=== PATIENT | female | born 1980 | race African-American/Black ===

== ENCOUNTER 2018-10-12 15:07 | Inpatient (IN) | payer OTHER ==
[2018-10-12 17:08] VITALS: BMI 32.2
--- NOTE | 2018-10-12 19:51 | HP ---
COWS - Scale Resting Pulse: 1= [place] 81-100 Sweatin= No chills or Flushing Restless Observation: 1= Difficult to Sit Still Pupil Size: 2= Moderately Dilated (Pupils = 5 mm) Bone or Joint Aches: 1= Mild Discomfort (Low back pain) Runny Nose/ Eye Tearin= Runny Nose/Eyes GI Upset > 30mins: 2= Nausea/Diarrhea (No diarrhea) Tremor Observation: 2= Slight Tremor Visible Yawning Observation: 0= None Anxiety or Irritability: 2=Irritable/Anxious Goose Flesh Skin: 0=Smooth Skin COWS Score: 13 CIWA Score Nausea/Vomitin-Mild Nausea/No Vomiting Muscle Tremors: 3 Anxiety: 4-Mod. Anxious/Guarded Agitation: 2 Paroxysmal Sweats: 3 (Facial moisture w/o beads) Orientation: 0-Oriented Tacttile Disturbances: 0-None Auditory Disturbances: 0-None Visual Disturbances: 0-None Headache: 0-None Present CIWA-Ar Total Score: 13 - Admission Criteria OAS Guidelines: Admission for Medically Managed Detox: Requires at least one of the followin. CIWA greater than 12 2. Seizures within the past 24 hours 3. Delirium tremens within the past 24 hours 4. Hallucinations within the past 24 hours 5. Acute intervention needed for co occurring medical disorder 6. Acute intervention needed for co occurring psychiatric disorder 7. Severe withdrawal that cannot be handled at a lower level of care (continued vomiting, continued diarrhea, abnormal vital signs) requiring intravenous medication and/or fluids 8. Patient presents the following: CIWA greater than 12 Admission Criteria Met: Admission criteria met Admission ROS [facility] Chief Complaint: Here for heroin withdrawal. Allergies/Adverse Reactions: Allergies Allergy/AdvReac Type Severity Reaction Status Date / Time No Known Drug Allergies Allergy Unknown Verified 12/08/15 14:55 lactose AdvReac LACTOSE Verified 12/08/15 14:55 INTOLERANCE History of Present Illness: I need detox from heroin. Heroin use began at age 22. heroin use IV. Denies sharing needles and works. Cocaine use began at age 22. Alcohol use began at age 22. Nicotine use began at age 15. Denies hx seizures, blackouts, overdoses. Longest sobriety 2 years - w/ meetings. (2012) Patient Name: Anisa Arrieta Date: 1980 Address: [address] [place] [address] [place] [address] Sex: Female Rx Written Rx Dispensed Drug Quantity Days Supply Prescriber Name 09/26/2018 09/26/2018 methadone hcl 10 mg tablet 11 6 RonakShadiMeghana NP 08/15/2018 08/17/2018 suboxone 2 mg-0.5 mg sl film 30 30 Antoni Sanchez MD 07/18/2018 07/18/2018 suboxone 2 mg-0.5 mg sl film 30 30 Antoni Sanchez MD 06/14/2018 06/18/2018 suboxone 2 mg-0.5 mg sl film 30 30 Antoni Sanchez MD 05/17/2018 05/22/2018 suboxone 2 mg-0.5 mg sl film 30 30 Antoni Sanchez MD 04/19/2018 04/19/2018 suboxone 2 mg-0.5 mg sl film 30 30 Antoni Sanchez MD Patient Name: Anisa Arrieta Date: 1980 Address: [address] [place] [address] Sex: Female Rx Written Rx Dispensed Drug Quantity Days Supply Prescriber Name 03/20/2018 03/20/2018 suboxone 2 mg-0.5 mg sl film 30 30 Gaby Berry MD 02/13/2018 02/19/2018 suboxone 2 mg-0.5 mg sl film 15 30 Antoni Sanchez MD Patient Name: Anisa Arrieta Date: 1980 Address: [address] [place] [address] Sex: Female Rx Written Rx Dispensed Drug Quantity Days Supply Prescriber Name 01/18/2018 01/18/2018 suboxone 2 mg-0.5 mg sl film 15 30 Antoni Sanchez MD Patient Name: Anisa Arrieta Date: 1980 Address: [address] [place] [address] Sex: Female Rx Written Rx Dispensed Drug Quantity Days Supply Prescriber Name 11/24/2017 12/04/2017 suboxone 2 mg-0.5 mg sl film 30 30 Yisel Bryant 11/02/2017 11/02/2017 suboxone 2 mg-0.5 mg sl film 30 30 Yisel Bryant Exam Limitations: No Limitations - Ebola screening Have you traveled outside of the country in the last 21 days: No Have you had contact with anyone from an Ebola affected area: No Have you been sick,other than usual withdrawal symptoms: No Do you have a fever: No - Review of Systems Constitutional: No Symptoms Reported, Diaphoresis EENT: reports: Blurred Vision, Dental Problems (Missing teeth. Chews and swallows ok.) Respiratory: reports: No Symptoms reported Cardiac: reports: No Symptoms Reported GI: reports: Constipated (No BM x 6 days.), Nausea : reports: No Symptoms Reported Musculoskeletal: reports: Back Pain (r/t withdrawal), Other (Occ muscle spasms/ evin horses) Integumentary: reports: No Symptoms Reported Neuro: reports: Numbness (Tip of both big toes x years) Endocrine: reports: No Symptoms Reported Hematology: reports: No Symptoms Reported Psychiatric: reports: Judgement Intact, Orientated x3, Agitated, Anxious, Depressed (Denies thoughts of hurting self or others.) Patient History - Patient Medical History Hx Anemia: No Hx Asthma: No Hx Chronic Obstructive Pulmonary Disease (COPD): No Hx Cancer: No Hx Cardiac Disorders: No Hx Congestive Heart Failure: No Hx Hypertension: No Hx Hypercholesterolemia: No Hx Pacemaker: No HX Cerebrovascular Accident: No Hx Seizures: No Hx Dementia: No Hx Diabetes: No Hx Gastrointestinal Disorders: No Hx Liver Disease: Yes Hx Genitourinary Disorders: No Hx Sexually Transmitted Disorders: No Hx Renal Disease (ESRD): No Hx Thyroid Disease: No Hx Human Immunodeficiency Virus (HIV): No (NEGATIVE HX) Hx Hepatitis C: Yes (NO TREATMENT) Hx Depression: Yes (ON MEDS) Hx Suicide Attempt: No Hx Bipolar Disorder: No Hx Schizophrenia: No - Patient Surgical History Past Surgical History: Yes Hx Neurologic Surgery: No Hx Cataract Extraction: No Hx Cardiac Surgery: No Hx Lung Surgery: No Hx Breast Surgery: No Hx Breast Biopsy: No Hx Abdominal Surgery: No Hx Appendectomy: No Hx Cholecystectomy: No Hx Genitourinary Surgery: No Hx Section: No Hx Orthopedic Surgery: No Other Surgical History: I&D OF ABSCESS LT. FOREARM Anesthesia Reaction: No - PPD History Previous Implant?: Yes Documented Results: Negative w/proof Implanted On Prior R Admission?: Yes Date: 08/22/15 Results: 0 MM PPD to be Administered?: Yes - Reproductive History Patient is a Female of Child Bearing Age (11 -55 yrs old): Yes Last Menstrual Period: 09/06/18 Patient : No - Smoking Cessation Smoking history: Current every day smoker Have you smoked in the past 12 months: Yes Aproximately how many cigarettes per day: 10 Cigars Per Day: 0 Hx Chewing Tobacco Use: No Initiated information on smoking cessation: Yes 'Breaking Loose' booklet given: 10/12/18 - Substance & Tx. History Hx Alcohol Use: Yes Hx Substance Use: Yes Substance Use Type: Alcohol, Cocaine, Heroin Hx Substance Use Treatment: Yes (detox, rehab, long-term) - Substances Abused Heroin Route: Injection Frequency: Daily Amount used: 6 to 8 bags Age of first use: 22 Date of Last Use: 10/12/18 Cocaine Route: Injection Frequency: Daily Amount used: 4 bags Age of first use: 22 Date of Last Use: 10/12/18 Alcohol Route: Oral Frequency: Daily Amount used: 3 - 24 oz cans Age of first use: 22 Date of Last Use: 10/12/18 Family Disease History - Family Disease History Family Disease History: Diabetes: Father (etoh drugs), Other: Father, Mother ( etoh drugs) Admission Physical Exam [facility] - Vital Signs Vital Signs: Vital Signs - 24 hr 10/12/18 17:06 Temperature 97.9 F Pulse Rate 85 Respiratory 18 Rate Blood Pressure 132/85 - Physical General Appearance: Yes: Appropriately Dressed, Mild Distress, Tremorous, Irritable, Sweating, Anxious HEENTM: Yes: EOMI, Hearing grossly Normal, Normal Voice, NEERAJ (Pupils = 5 mm), Pharynx Normal, Rhinorrhea Respiratory: Yes: Lungs Clear, Normal Breath Sounds, No Respiratory Distress Neck: Yes: No masses,lesions,Nodules, Supple Breast: Yes: Breast Exam Deferred Cardiology: Yes: Regular Rhythm, Regular Rate, S1, S2 Abdominal: Yes: Non Tender, Soft, Increased Bowel Sounds Genitourinary: Yes: Within Normal Limits Back: Yes: Normal Inspection Musculoskeletal: Yes: full range of Motion, Gait Steady Extremities: Yes: Normal Capillary Refill, Tremors (mod tremors w/ arms extended ) Neurological: Yes: grain scooper II-XII NML intact, Fully Oriented, Alert, Motor Strength 5/5, Normal Mood/Affect Integumentary: Yes: Normal Color, Dry, Warm, Track Callaway ((R) and (L) arms. (L) arm injection site w/ increased warmth and a 3 cm circular induration.) Lymphatic: Yes: Within Normal Limits - Diagnostic (1) Alcohol dependence with uncomplicated withdrawal Current Visit: No Status: Chronic (2) Cocaine dependence Current Visit: No Status: Chronic Qualifiers: Substance use status: uncomplicated Qualified Code(s): F14.20 - Cocaine dependence, uncomplicated (3) Nicotine dependence Current Visit: No Status: Chronic (4) Opioid dependence with withdrawal Current Visit: No Status: Chronic (5) Induration at injection site Current Visit: Yes Status: Acute Comment: (R) antecubital area Cleared for Admission [facility] - Detox or Rehab [facility] Level of Care: Medically Managed Detox Regimen/Protocol: Methadone/Librium [facility] Breath Alcohol Content Breath Alcohol Content: 0 Urine Pregancy Test - Result Urine Test Results: Negative- NO Line Present Urine Drug Screen - Results Drug Screen Negative: No Urine Drug Screen Results: BETTYE-Cocaine, OPI-Opiates, BAR-Barbiturates, MTD- Methadone, OXY-Oxycodone, FEN-Fentanyl
[2018-10-12] MEDS ORDERED: METHADONE HCL 10 MG TABLET (FOR DETOX USE ONLY) PO ONE ×2 (23:00→23:19)
[2018-10-12] MEDS ORDERED: chlordiazePOXIDE HCL 25 MG CAPSULE PO SCH (23:00)
[2018-10-12] MEDS ORDERED: chlordiazePOXIDE 5 MG CAPSULE PO PRN (23:19)
[2018-10-12] MEDS ORDERED: MAG HYDROX/AL HYDROX/SIMETH 30 ML UNIT-DOSE CUP PO PRN (23:19)
[2018-10-12] MEDS ORDERED: MAGNESIUM CITRATE 300 ML BOTTLE PO PRN (23:19)
[2018-10-12] MEDS ORDERED: IBUPROFEN 400 MG TABLET (FP) PO PRN (23:19)
[2018-10-12] MEDS ORDERED: MAGNESIUM HYDROX 2400MG/30ML ORAL SUSPENSION 30 ML CUP PO PRN (23:19)
[2018-10-12] MEDS ORDERED: ACETAMINOPHEN 325 MG TABLET (FP) PO PRN (23:19)
[2018-10-12] MEDS ORDERED: LOPERAMIDE HCL 2 MG CAPSULE PO PRN (23:19)
[2018-10-12] MEDS ORDERED: MENTHOL/PHENOL 1 EACH UD MM PRN (23:19)
[2018-10-12] MEDS ORDERED: NICOTINE POLACRILEX 2 MG GUM BC PRN (23:19)
[2018-10-13] MEDS ORDERED: METHADONE HCL 10 MG TABLET (FOR DETOX USE ONLY) PO ONE ×3 (00:40→23:00)
[2018-10-13] MEDS: MELATONIN 5 MG TABLETS PO PRN ×2 (00:59→23:08)
[2018-10-13] MEDS: BACITRACIN 0.9 GM PACKET TP SCH ×5 (01:00→23:01)
[2018-10-13] MEDS ORDERED: METHADONE HCL 10 MG TABLET (FOR DETOX USE ONLY) PO SCH (10:00)
[2018-10-13] MEDS: PRENATAL VITAMINS W/ FOLIC ACID TABLET (FP) PO SCH (10:52)
[2018-10-13] MEDS: NICOTINE 14 MG/24 HOURS TOPICAL PATCH TD SCH (10:53)
[2018-10-13 11:10] LABS: HEMOGLOBIN 12.2 GM/dL (10.7-15.3); MCH 26.1 pg (25.7-33.7); MCHC 31.2 g/dl (32.0-36.0); MEAN CELL VOLUME 83.5 fl (80-96); PLATELET COUNT 299 K/MM3 (134-434); RBC 4.67 M/mm3 (3.60-5.2); RDW 14.2 % (11.6-15.6); WHITE BLOOD COUNT 5.6 K/mm3 (4.0-10.0)
[2018-10-13 11:27] LABS: ALBUMIN 3.3 g/dl (3.4-5.0); ALK PHOS 64 U/L (45-117); ANION GAP 8 MMOL/L (8-16); BILIRUBIN,TOTAL 0.5 mg/dL (0.2-1); BLOOD UREA NITROGEN 9 mg/dL (7-18); CALCIUM 8.8 mg/dL (8.5-10.1); CHLORIDE 104 mmol/L (98-107); CO2 27 mmol/L (21-32); CREATININE 0.8 mg/dL (0.55-1.3); GLUCOSE,RANDOM 86 mg/dL (74-106); POTASSIUM 3.7 mmol/L (3.5-5.1); SGOT/AST 24 U/L (15-37); SGPT/ALT 29 U/L (13-61); SODIUM 139 mmol/L (136-145); TOT PROT 6.5 g/dl (6.4-8.2)
--- NOTE | 2018-10-13 11:32 | PN ---
[facility] CIWA - CIWA Score Nausea/Vomitin-No Nausea/No Vomiting Muscle Tremors: 4-Moderate,w/Arms Extend Anxiety: 4-Mod. Anxious/Guarded Agitation: 4-Moderately Restless Paroxysmal Sweats: 1-Minimal Palms Moist Orientation: 0-Oriented Tacttile Disturbances: 0-None Auditory Disturbances: 0-None Visual Disturbances: 0-None Headache: 0-None Present CIWA-Ar Total Score: 13 BHS COWS - Scale Resting Pulse: 0= [place] 80 or Below Sweatin= Chills/Flushing Restless Observation: 3= Extraneous Movement Pupil Size: 0= Normal to Room Light Bone or Joint Aches: 4=Acute Joint/Muscle Pain Runny Nose/ Eye Tearin= None GI Upset > 30mins: 0= None Tremor Observation of Outstretched Hands: 2= Slight Tremor Visible Yawning Observation: 1= 1-2x During Session Anxiety or Irritability: 2=Irritable/Anxious Goose Flesh Skin: 0=Smooth Skin COWS Score: 13 S Progress Note (SOAP) Subjective: ANXIETY,SWEATS, NO BM X 6 DAYS,INTERMITTENT SLEEP. Objective: Vital Signs (72 hours) 10/12/18 10/13/18 10/13/18 17:06 00:25 03:30 Temperature 97.9 F 97.1 F L Pulse Rate 85 69 Respiratory 18 18 18 Rate Blood Pressure 132/85 136/89 10/13/18 10/13/18 10/13/18 06:22 06:30 09:57 Temperature 97.3 F L 98.1 F Pulse Rate 56 L 66 Respiratory 18 18 16 Rate Blood Pressure 115/69 122/78 Laboratory Tests 10/13/18 10/13/18 10/13/18 07:50 07:50 07:50 WBC 5.6 RBC 4.67 Hgb 12.2 Hct 39.0 MCV 83.5 MCH 26.1 MCHC 31.2 L RDW 14.2 Plt Count 299 MPV 8.0 Sodium 139 Potassium 3.7 Chloride 104 Carbon Dioxide 27 Anion Gap 8 BUN 9 Creatinine 0.8 Creat Clearance w eGFR > 60 Random Glucose 86 Calcium 8.8 Total Bilirubin 0.5 AST 24 ALT 29 Alkaline Phosphatase 64 Total Protein 6.5 Albumin 3.3 L RPR Titer HIV 1&2 Antibody Screen Negative HIV P24 Antigen Negative 10/13/18 07:50 WBC RBC Hgb Hct MCV MCH MCHC RDW Plt Count MPV Sodium Potassium Chloride Carbon Dioxide Anion Gap BUN Creatinine Creat Clearance w eGFR Random Glucose Calcium Total Bilirubin AST ALT Alkaline Phosphatase Total Protein Albumin RPR Titer Nonreactive HIV 1&2 Antibody Screen HIV P24 Antigen Assessment: WITHDRAWAL SX OIC Plan: CONTINUE DETOX METAMUCIL PO BID DIRECTED
[2018-10-13] MEDS: hydrOXYzine PAMOATE 50 MG CAPSULE (FP) PO PRN (18:09)
[2018-10-13] MEDS: PSYLLIUM 5.85 GM PACKET PO SCH ×2 (23:00)
[2018-10-13] MEDS: THIAMINE HCL 100 MG TABLET (FP) PO SCH (23:00)
[2018-10-13] MEDS ORDERED: chlordiazePOXIDE 5 MG CAPSULE PO SCH (23:00)
[2018-10-14] MEDS ORDERED: METHADONE HCL 5 MG TABLET (FOR DETOX USE ONLY) PO SCH (10:00)
[2018-10-14] MEDS ORDERED: METHADONE HCL 10 MG TABLET (FOR DETOX USE ONLY) PO ONE (10:00)
[2018-10-14] MEDS: hydrOXYzine PAMOATE 50 MG CAPSULE (FP) PO PRN (10:37)
[2018-10-14] MEDS: PRENATAL VITAMINS W/ FOLIC ACID TABLET (FP) PO SCH (10:37)
[2018-10-14] MEDS: BACITRACIN 0.9 GM PACKET TP SCH ×4 (10:37→22:38)
[2018-10-14] MEDS: PSYLLIUM 5.85 GM PACKET PO SCH ×2 (10:38→22:38)
[2018-10-14] MEDS: NICOTINE 14 MG/24 HOURS TOPICAL PATCH TD SCH (10:38)
[2018-10-14] MEDS ORDERED: chlordiazePOXIDE HCL 25 MG CAPSULE PO PRN (17:23)
[2018-10-14] MEDS ORDERED: chlordiazePOXIDE 5 MG CAPSULE PO SCH (17:30)
[2018-10-14] MEDS ORDERED: chlordiazePOXIDE HCL 25 MG CAPSULE PO SCH (17:30)
[2018-10-14] MEDS ORDERED: chlordiazePOXIDE HCL 25 MG CAPSULE PO ONE ×2 (17:30→18:00)
--- NOTE | 2018-10-14 17:42 | PN ---
S CIWA - CIWA Score Nausea/Vomitin Muscle Tremors: 4-Moderate,w/Arms Extend Anxiety: 4-Mod. Anxious/Guarded Agitation: 4-Moderately Restless Paroxysmal Sweats: 3 Orientation: 0-Oriented Tacttile Disturbances: 1-Very Mild Itch/Numbness Auditory Disturbances: 0-None Visual Disturbances: 0-None Headache: 0-None Present CIWA-Ar Total Score: 18 BHS COWS - Scale Resting Pulse: 0= DC 80 or Below Sweatin= Chills/Flushing Restless Observation: 3= Extraneous Movement Pupil Size: 0= Normal to Room Light Bone or Joint Aches: 2= Severe Diffuse Aches Runny Nose/ Eye Tearin= Runny Nose/Eyes GI Upset > 30mins: 3= Vomiting/Diarrhea Tremor Observation of Outstretched Hands: 2= Slight Tremor Visible Yawning Observation: 1= 1-2x During Session Anxiety or Irritability: 2=Irritable/Anxious Goose Flesh Skin: 0=Smooth Skin COWS Score: 16 BHS Progress Note (SOAP) Subjective: Patient refused to speak with newspaper writer. As per staff, patient c/o withdrawal symptoms and was not treated for alcohol withdrawal. Objective: 10/14/18 17:40 Last Vital Signs Temp Pulse Resp BP Pulse Ox 98.6 F 66 20 124/79 10/14/18 14:55 10/14/18 14:55 10/14/18 14:55 10/14/18 14:55 Laboratory Tests 10/13/18 10/13/18 10/13/18 07:50 07:50 07:50 WBC 5.6 RBC 4.67 Hgb 12.2 Hct 39.0 MCV 83.5 MCH 26.1 MCHC 31.2 L RDW 14.2 Plt Count 299 MPV 8.0 Sodium 139 Potassium 3.7 Chloride 104 Carbon Dioxide 27 Anion Gap 8 BUN 9 Creatinine 0.8 Creat Clearance w eGFR > 60 Random Glucose 86 Calcium 8.8 Total Bilirubin 0.5 AST 24 ALT 29 Alkaline Phosphatase 64 Total Protein 6.5 Albumin 3.3 L RPR Titer HIV 1&2 Antibody Screen Negative HIV P24 Antigen Negative 10/13/18 07:50 WBC RBC Hgb Hct MCV MCH MCHC RDW Plt Count MPV Sodium Potassium Chloride Carbon Dioxide Anion Gap BUN Creatinine Creat Clearance w eGFR Random Glucose Calcium Total Bilirubin AST ALT Alkaline Phosphatase Total Protein Albumin RPR Titer Nonreactive HIV 1&2 Antibody Screen HIV P24 Antigen Labs reviewed Assessment: 10/14/18 17:41 Withdrawal symptoms Plan: Continue detox Encouraged PO water intake Patient admitted for alcohol and opioid dependence. Patient only on methadone detox. Ordered to start librium 25mg detox protocol due to alcohol withdrawal. Continue to monitor.
[2018-10-14] MEDS: THIAMINE HCL 100 MG TABLET (FP) PO SCH (22:38)
[2018-10-14] MEDS: chlordiazePOXIDE HCL 25 MG CAPSULE PO SCH (22:38)
[2018-10-14] MEDS: MELATONIN 5 MG TABLETS PO PRN (22:39)
[2018-10-14] MEDS ORDERED: chlordiazePOXIDE HCL 10 MG CAPSULE PO SCH (23:00)
[2018-10-15] MEDS: chlordiazePOXIDE HCL 25 MG CAPSULE PO SCH (06:01)
[2018-10-15 09:07] VITALS: BP 134/95; PULSE 67; TEMP 99.7
[2018-10-15] MEDS ORDERED: METHADONE HCL 5 MG TABLET (FOR DETOX USE ONLY) PO ONE (10:00)
--- NOTE | 2018-10-15 13:33 | DS ---
[facility] Detox Discharge Summary Admission Date: 10/12/18 Discharge Date: 10/15/18 - History Present History: Opioid Dependence Additional Comments: 38 years old female admitted on 10/12/18 for opiate withdrawal sx insists to leave the detox unit patient is alert no acute distress denies suicidal denies homocidal no self destructive behavior Pertinent Past History: strong recommend utilizing community health services for mental and medical issues encourage 12 steps self help group and meeting - Physical Exam Results Vital Signs: Vital Signs Temperature 99.7 F H 10/15/18 09:06 Pulse Rate 67 10/15/18 09:06 Respiratory Rate 18 10/15/18 09:06 Blood Pressure 134/95 10/15/18 09:06 O2 Sat by Pulse Oximetry (%) Pertinent Admission Physical Exam Findings: opiate withdrawal sx Vital Signs Temperature 99.7 F H 10/15/18 09:06 Pulse Rate 67 10/15/18 09:06 Respiratory Rate 18 10/15/18 09:06 Blood Pressure 134/95 10/15/18 09:06 O2 Sat by Pulse Oximetry (%) Laboratory Last Values WBC 5.6 K/mm3 (4.0-10.0) 10/13/18 07:50 RBC 4.67 M/mm3 (3.60-5.2) 10/13/18 07:50 Hgb 12.2 GM/dL (10.7-15.3) 10/13/18 07:50 Hct 39.0 % (32.4-45.2) 10/13/18 07:50 MCV 83.5 fl (80-96) 10/13/18 07:50 MCH 26.1 pg (25.7-33.7) 10/13/18 07:50 MCHC 31.2 g/dl (32.0-36.0) L 10/13/18 07:50 RDW 14.2 % (11.6-15.6) 10/13/18 07:50 Plt Count 299 K/MM3 (134-434) 10/13/18 07:50 MPV 8.0 fl (7.5-11.1) 10/13/18 07:50 Sodium 139 mmol/L (136-145) 10/13/18 07:50 Potassium 3.7 mmol/L (3.5-5.1) 10/13/18 07:50 Chloride 104 mmol/L (98-107) 10/13/18 07:50 Carbon Dioxide 27 mmol/L (21-32) 10/13/18 07:50 Anion Gap 8 MMOL/L (8-16) 10/13/18 07:50 BUN 9 mg/dL (7-18) 10/13/18 07:50 Creatinine 0.8 mg/dL (0.55-1.3) 10/13/18 07:50 Creat Clearance w eGFR > 60 (>60) 10/13/18 07:50 Random Glucose 86 mg/dL (74-106) 10/13/18 07:50 Calcium 8.8 mg/dL (8.5-10.1) 10/13/18 07:50 Total Bilirubin 0.5 mg/dL (0.2-1) 10/13/18 07:50 AST 24 U/L (15-37) 10/13/18 07:50 ALT 29 U/L (13-61) 10/13/18 07:50 Alkaline Phosphatase 64 U/L (45-117) 10/13/18 07:50 Total Protein 6.5 g/dl (6.4-8.2) 10/13/18 07:50 Albumin 3.3 g/dl (3.4-5.0) L 10/13/18 07:50 RPR Titer Nonreactive (NONREACTIVE) 10/13/18 07:50 HIV 1&2 Antibody Screen Negative 10/13/18 07:50 HIV P24 Antigen Negative 10/13/18 07:50 lab noted - Treatment Hospital Course: Detox Protocol Followed, Responded well Patient has Accepted a Rehab Referral to: as per counselor arramged - Medication Discharge Medications: Ambulatory Orders NK [No Known Home Medication] 10/12/18 - Diagnosis (1) Nicotine dependence with withdrawal Status: Acute Qualifiers: Nicotine product type: cigarettes Qualified Code(s): F17.213 - Nicotine dependence, cigarettes, with withdrawal (2) Opioid dependence with withdrawal Status: Acute (3) Essential hypertension Status: Chronic (4) Hepatitis C Status: Chronic Qualifiers: Viral hepatitis chronicity: chronic Hepatic coma status: without hepatic coma Qualified Code(s): B18.2 - Chronic viral hepatitis C - AMA Did Patient Leave Against Medical Advice: Yes
[2018-10-15] MEDS ORDERED: chlordiazePOXIDE 5 MG CAPSULE PO SCH ×2 (23:00)
[2018-10-15] MEDS ORDERED: chlordiazePOXIDE HCL 25 MG CAPSULE PO SCH (23:00)
[2018-10-16] MEDS ORDERED: METHADONE HCL 5 MG TABLET (FOR DETOX USE ONLY) PO ONE (10:00)
[2018-10-16] MEDS ORDERED: METHADONE HCL 10 MG TABLET (FOR DETOX USE ONLY) PO SCH (10:00)
[2018-10-16] MEDS ORDERED: chlordiazePOXIDE HCL 10 MG CAPSULE PO SCH (23:00)
[2018-10-16] MEDS ORDERED: chlordiazePOXIDE 5 MG CAPSULE PO SCH (23:00)
[2018-10-17] MEDS ORDERED: METHADONE HCL 5 MG TABLET (FOR DETOX USE ONLY) PO SCH (06:00)
[2018-10-17] MEDS ORDERED: METHADONE HCL 10 MG TABLET (FOR DETOX USE ONLY) PO ONE (10:00)
[2018-10-17] MEDS ORDERED: chlordiazePOXIDE HCL 10 MG CAPSULE PO SCH (23:00)
[2018-10-18] MEDS ORDERED: METHADONE HCL 5 MG TABLET (FOR DETOX USE ONLY) PO ONE (06:00)
== END 2018-10-15 09:55 | disposition left against medical advice (07) | DRG 770 ==
LOC: YASAS 15:07 → Y3N 20:24
PROC: HZ2ZZZZ Detoxification Services for Substance Abuse Treatment (ICD-10-PCS; principal; 2018-10-12)
DX: F11.23 Opioid dependence with withdrawal (principal); F10.230 Alcohol dependence with withdrawal, uncomplicated; F14.20 Cocaine dependence, uncomplicated; F17.210 Nicotine dependence, cigarettes, uncomplicated; I10 Essential (primary) hypertension; B18.2 Chronic viral hepatitis C; R23.4 Changes in skin texture
CPT/HCPCS: 36415; 80053; 85027; 86593; 87389

== ENCOUNTER 2018-11-22 11:38 | Inpatient (IN) | payer OTHER ==
[2018-11-22 12:15] VITALS: BMI 31.7
--- NOTE | 2018-11-22 13:55 | HP ---
COWS - Scale Resting Pulse: 0= [place] 80 or Below Sweatin= Chills/Flushing Restless Observation: 5= Unable to Sit Still Pupil Size: 0= Normal to Room Light Bone or Joint Aches: 4=Acute Joint/Muscle Pain Runny Nose/ Eye Tearin= Runny Nose/Eyes GI Upset > 30mins: 2= Nausea/Diarrhea Tremor Observation: 1= Tremor [place], Not Seen Yawning Observation: 0= None Anxiety or Irritability: 2=Irritable/Anxious Goose Flesh Skin: 0=Smooth Skin COWS Score: 17 CIWA Score Nausea/Vomitin Muscle Tremors: None Anxiety: 4-Mod. Anxious/Guarded Agitation: 1-Slight > Activity Paroxysmal Sweats: 2 Orientation: 0-Oriented Tacttile Disturbances: 0-None Auditory Disturbances: 0-None Visual Disturbances: 0-None Headache: 3-Moderate CIWA-Ar Total Score: 12 - Admission Criteria OASAS Guidelines: Admission for Medically Managed Detox: Requires at least one of the followin. CIWA greater than 12 2. Seizures within the past 24 hours 3. Delirium tremens within the past 24 hours 4. Hallucinations within the past 24 hours 5. Acute intervention needed for co occurring medical disorder 6. Acute intervention needed for co occurring psychiatric disorder 7. Severe withdrawal that cannot be handled at a lower level of care (continued vomiting, continued diarrhea, abnormal vital signs) requiring intravenous medication and/or fluids 8. Admission ROS [facility] Allergies/Adverse Reactions: Allergies Allergy/AdvReac Type Severity Reaction Status Date / Time No Known Drug Allergies Allergy Unknown Verified 11/22/18 12:42 lactose AdvReac LACTOSE Verified 11/22/18 12:42 INTOLERANCE History of Present Illness: patient here requesting detox from etoh use , reports beer " depends how much money I have " reports tremors if not drinking alcohol, max 12 x 24 oz beer and liquor 1 pint since the beginning of this year , prior use less , first age of use teens, heavy since age 22 , prior detox at this facility 6 weeks ago , latest use 4 am today heroin use : reports 8-10 bags / day IVDU in Right UE , needles from the exchange , denies sharing, + reusing some times , had abscess years ago in her 20's , OD 1 year ago , Narcan by [facility] , latest use 4 am cocaine : 4-5 bags IVDU tobacco : /2 ppd PMHX/PSHx : HTN , lactose intolerance PSych : depression , anxiety , denies SI / Hi SHx : lives [place] , unemployed since 1 mo ago , prior housekeeping at [employer] , laid off due to missing work . LMP 1 mo ago upt neg age 8 w/ bio father in [place] Exam Limitations: Clinical Condition - Ebola screening Have you traveled outside of the country in the last 21 days: No Have you had contact with anyone from an Ebola affected area: No Have you been sick,other than usual withdrawal symptoms: No Do you have a fever: No - Review of Systems Constitutional: See HPI EENT: reports: Other (myopia , denies dysphagia) Respiratory: reports: No Symptoms reported Cardiac: reports: No Symptoms Reported GI: reports: No Symptoms Reported : reports: No Symptoms Reported Musculoskeletal: reports: See HPI Integumentary: reports: Dryness (mildred feet) Neuro: reports: No Symptoms reported Psychiatric: reports: Orientated x3, Agitated, Anxious Patient History - Patient Medical History Hx Anemia: No Hx Asthma: No Hx Chronic Obstructive Pulmonary Disease (COPD): No Hx Cancer: No Hx Cardiac Disorders: No Hx Congestive Heart Failure: No Hx Hypertension: Yes (ON MEDS.) Hx Hypercholesterolemia: No Hx Pacemaker: No HX Cerebrovascular Accident: No Hx Seizures: No Hx Dementia: No Hx Diabetes: No Hx Gastrointestinal Disorders: No Hx Liver Disease: Yes Hx Genitourinary Disorders: No Hx Sexually Transmitted Disorders: Yes (Hx of genital herpes) Hx Renal Disease (ESRD): No Hx Thyroid Disease: No Hx Human Immunodeficiency Virus (HIV): No (NEGATIVE HX) Hx Hepatitis C: Yes (NO TREATMENT) Hx Depression: Yes Hx Suicide Attempt: No Hx Bipolar Disorder: No Hx Schizophrenia: No - Patient Surgical History Past Surgical History: Yes Hx Neurologic Surgery: No Hx Cataract Extraction: No Hx Cardiac Surgery: No Hx Lung Surgery: No Hx Breast Surgery: No Hx Breast Biopsy: No Hx Abdominal Surgery: No Hx Appendectomy: No Hx Cholecystectomy: No Hx Genitourinary Surgery: No Hx Section: No Hx Orthopedic Surgery: No Other Surgical History: I&D OF ABSCESS LT. FOREARM Anesthesia Reaction: No - PPD History Previous Implant?: Yes Documented Results: Negative w/o proof Implanted On Prior R Admission?: Yes Date: 08/22/15 Results: 0 MM - Reproductive History Last Menstrual Period: 10/23/18 Patient : No - Smoking Cessation Smoking history: Current every day smoker Have you smoked in the past 12 months: Yes Aproximately how many cigarettes per day: 10 Cigars Per Day: 0 Hx Chewing Tobacco Use: No Initiated information on smoking cessation: No - Substances Abused Heroin Route: Injection Frequency: Daily Amount used: 6 bags Age of first use: 22 Date of Last Use: 11/22/18 Cocaine Route: Injection Frequency: Daily Amount used: 3 bags Age of first use: 22 Date of Last Use: 11/22/18 Alcohol Route: Oral Frequency: Daily Amount used: 4 24 oz beers Age of first use: 14 Date of Last Use: 11/22/18 Family Disease History - Family Disease History Family Disease History: Diabetes: Father (etoh drugs), Other: Father, Mother ( etoh drugs) Admission Physical Exam S - Vital Signs Vital Signs: Vital Signs - 24 hr 11/22/18 12:10 Temperature 98.2 F Pulse Rate 76 Respiratory 18 Rate Blood Pressure 154/103 H - Physical General Appearance: Yes: Moderate Distress HEENTM: Yes: EOMI, Hearing grossly Normal, Normocephalic, Normal Voice, Pharynx Normal, Other (missing teeth) Respiratory: Yes: Chest Non-Tender, Lungs Clear Neck: Yes: No masses,lesions,Nodules, Trachea in good position Breast: Yes: Breast Exam Deferred Cardiology: Yes: Regular Rhythm, Regular Rate, S1, S2 Abdominal: Yes: Within Normal Limits, Non Tender, Soft, Protuberent Back: Yes: Normal Inspection Musculoskeletal: Yes: full range of Motion, Gait Steady Extremities: Yes: Normal Capillary Refill, Normal Range of Motion, Tremors Neurological: Yes: Fully Oriented, Alert, Motor Strength 5/5 Integumentary: Yes: Normal Color, Track Callaway (R UE w/ induration , no abscess ) - Diagnostic (1) Alcohol dependence with uncomplicated withdrawal Current Visit: No Status: Acute (2) Induration at injection site Current Visit: No Status: Acute Comment: (R) antecubital area (3) Opioid dependence with withdrawal Current Visit: No Status: Acute (4) Cocaine dependence Current Visit: No Status: Chronic Qualifiers: Substance use status: uncomplicated Qualified Code(s): F14.20 - Cocaine dependence, uncomplicated (5) Nicotine dependence Current Visit: No Status: Chronic BHS Breath Alcohol Content Breath Alcohol Content: 0 Urine Pregancy Test - Result Urine Test Results: Negative- NO Line Present Urine Drug Screen - Results Drug Screen Negative: No Urine Drug Screen Results: BETTYE-Cocaine, OPI-Opiates, BZO-Benzodiazepines, MTD- Methadone
[2018-11-22] MEDS ORDERED: NICOTINE POLACRILEX 2 MG GUM BUC PRN (14:01)
[2018-11-22] MEDS ORDERED: MENTHOL/PHENOL 1 EACH UD MM PRN (14:01)
[2018-11-22] MEDS ORDERED: guaiFENesin/D-METHORPHAN HB 10 ML UNIT-DOSE CUPS PO PRN (14:01)
[2018-11-22] MEDS ORDERED: MAG HYDROX/AL HYDROX/SIMETH 30 ML UNIT-DOSE CUP PO PRN (14:01)
[2018-11-22] MEDS ORDERED: P-EPHED 60MG/TRIPROLIDI 2.5MG TABLET PO PRN (14:01)
[2018-11-22] MEDS ORDERED: MAGNESIUM CITRATE 300 ML BOTTLE PO PRN (14:01)
[2018-11-22] MEDS ORDERED: ACETAMINOPHEN 325 MG TABLET (FP) PO PRN (14:01)
[2018-11-22] MEDS ORDERED: IBUPROFEN 400 MG TABLET (FP) PO PRN (14:01)
[2018-11-22] MEDS ORDERED: MAGNESIUM HYDROX 2400MG/30ML ORAL SUSPENSION 30 ML CUP PO PRN (14:01)
[2018-11-22] MEDS ORDERED: METHADONE HCL 10 MG TABLET (FOR DETOX USE ONLY) PO ONE ×2 (15:00→23:00)
[2018-11-22] MEDS: amLODIPine BESYLATE 10 MG TABLET (FP) PO SCH ×2 (15:41→15:59)
[2018-11-22] MEDS: diazePAM 5 MG TABLET PO PRN ×2 (15:45→19:46)
[2018-11-22] MEDS ORDERED: MELATONIN 5 MG TABLETS PO PRN (22:00)
[2018-11-22] MEDS ORDERED: BISACODYL 5 MG TABLET.DR (FP) PO SCH (22:00)
[2018-11-22] MEDS: THIAMINE HCL 100 MG TABLET (FP) PO SCH (22:19)
[2018-11-22] MEDS: diazePAM 5 MG TABLET PO SCH (22:19)
[2018-11-23] MEDS: diazePAM 5 MG TABLET PO SCH ×3 (05:38→22:37)
[2018-11-23 09:58] LABS: HEMATOCRIT 35.4 % (32.4-45.2); HEMOGLOBIN 11.5 GM/dL (10.7-15.3); MCH 26.7 pg (25.7-33.7); MCHC 32.6 g/dl (32.0-36.0); PLATELET COUNT 288 K/MM3 (134-434); RBC 4.32 M/mm3 (3.60-5.2); RDW 14.5 % (11.6-15.6); WHITE BLOOD COUNT 4.4 K/mm3 (4.0-10.0)
[2018-11-23] MEDS ORDERED: METHADONE HCL 10 MG TABLET (FOR DETOX USE ONLY) PO SCH (10:00)
[2018-11-23] MEDS: LISINOPRIL 20 MG TABLET (FP) PO SCH (10:23)
[2018-11-23] MEDS: amLODIPine BESYLATE 10 MG TABLET (FP) PO SCH (10:23)
[2018-11-23] MEDS: diazePAM 5 MG TABLET PO PRN (10:23)
[2018-11-23] MEDS: PRENATAL VITAMINS W/ FOLIC ACID TABLET (FP) PO SCH (10:23)
[2018-11-23 10:33] LABS: ALBUMIN 3.1 g/dl (3.4-5.0); ALK PHOS 92 U/L (45-117); ANION GAP 8 MMOL/L (8-16); BILIRUBIN,TOTAL 0.7 mg/dL (0.2-1); BLOOD UREA NITROGEN 10 mg/dL (7-18); CALCIUM 8.4 mg/dL (8.5-10.1); CHLORIDE 107 mmol/L (98-107); CO2 28 mmol/L (21-32); CREATININE 0.8 mg/dL (0.55-1.3); GLUCOSE,RANDOM 96 mg/dL (74-106); SGOT/AST 11 U/L (15-37); SGPT/ALT 18 U/L (13-61); SODIUM 143 mmol/L (136-145); TOT PROT 6.3 g/dl (6.4-8.2)
--- NOTE | 2018-11-23 13:08 | PN ---
[facility] CIWA - CIWA Score Nausea/Vomitin-No Nausea/No Vomiting Muscle Tremors: 3 Anxiety: 3 Agitation: 3 Paroxysmal Sweats: 3 Orientation: 0-Oriented Tacttile Disturbances: 0-None Auditory Disturbances: 0-None Visual Disturbances: 0-None Headache: 0-None Present CIWA-Ar Total Score: 12 BHS COWS - Scale Resting Pulse: 0= [place] 80 or Below Sweatin=Flushed/Facial Moisture Restless Observation: 1= Difficult to Sit Still Pupil Size: 0= Normal to Room Light Bone or Joint Aches: 2= Severe Diffuse Aches Runny Nose/ Eye Tearin= Nasal Congestion GI Upset > 30mins: 1= Stomach Cramp Tremor Observation of Outstretched Hands: 2= Slight Tremor Visible Yawning Observation: 2= >3x During Session Anxiety or Irritability: 2=Irritable/Anxious Goose Flesh Skin: 0=Smooth Skin COWS Score: 13 S Progress Note (SOAP) Subjective: agitation anxiety sweats shakes tired Objective: 11/23/18 13:08 Vital Signs Temperature 98.4 F 11/23/18 10:01 Pulse Rate 77 11/23/18 10:01 Respiratory Rate 18 11/23/18 10:01 Blood Pressure 125/76 11/23/18 10:01 O2 Sat by Pulse Oximetry (%) Laboratory Tests 11/23/18 11/23/18 11/23/18 07:00 07:00 08:32 WBC 4.4 RBC 4.32 Hgb 11.5 Hct 35.4 MCV 82.0 MCH 26.7 MCHC 32.6 RDW 14.5 Plt Count 288 MPV 8.0 Sodium 143 Potassium 4.0 Chloride 107 Carbon Dioxide 28 Anion Gap 8 BUN 10 Creatinine 0.8 Creat Clearance w eGFR > 60 Random Glucose 96 Calcium 8.4 L Total Bilirubin 0.7 AST 11 L ALT 18 Alkaline Phosphatase 92 Total Protein 6.3 L Albumin 3.1 L RPR Titer Nonreactive aaox3 ambulating no acute distress Assessment: 11/23/18 13:08 withdrawal sx Plan: continue detox increase fluids
[2018-11-23] MEDS: BISACODYL 5 MG TABLET.DR (FP) PO PRN (13:35)
[2018-11-23] MEDS: THIAMINE HCL 100 MG TABLET (FP) PO SCH (22:37)
[2018-11-24] MEDS: diazePAM 5 MG TABLET PO PRN (06:24)
[2018-11-24] MEDS: BISACODYL 5 MG TABLET.DR (FP) PO PRN ×2 (07:25→10:48)
[2018-11-24] MEDS ORDERED: METHADONE HCL 5 MG TABLET (FOR DETOX USE ONLY) PO SCH (10:00)
[2018-11-24] MEDS: diazePAM 5 MG TABLET PO SCH ×2 (10:46→22:43)
[2018-11-24] MEDS: amLODIPine BESYLATE 10 MG TABLET (FP) PO SCH (10:46)
[2018-11-24] MEDS: LISINOPRIL 20 MG TABLET (FP) PO SCH (10:46)
[2018-11-24] MEDS: PRENATAL VITAMINS W/ FOLIC ACID TABLET (FP) PO SCH (10:47)
--- NOTE | 2018-11-24 13:28 | PN ---
S CIWA - CIWA Score Nausea/Vomitin Muscle Tremors: 2 Anxiety: 2 Agitation: 2 Paroxysmal Sweats: 2 Orientation: 0-Oriented Tacttile Disturbances: 1-Very Mild Itch/Numbness Auditory Disturbances: 1-Very Mild Visual Disturbances: 0-None Headache: 1-Very Mild CIWA-Ar Total Score: 13 BHS COWS - Scale Resting Pulse: 0= [place] 80 or Below Sweatin= Chills/Flushing Restless Observation: 1= Difficult to Sit Still Pupil Size: 0= Normal to Room Light Bone or Joint Aches: 2= Severe Diffuse Aches Runny Nose/ Eye Tearin= Nasal Congestion GI Upset > 30mins: 1= Stomach Cramp Tremor Observation of Outstretched Hands: 2= Slight Tremor Visible Yawning Observation: 0= None Anxiety or Irritability: 1=Feels Anxious/Irritable Goose Flesh Skin: 0=Smooth Skin COWS Score: 9 BHS Progress Note (SOAP) Subjective: Interrupted sleep, tremors, sweats and generalized pain Objective: 11/24/18 13:27 Vital Signs - 8 hr 11/24/18 11/24/18 11/24/18 08:29 09:53 13:26 Temperature 98.8 F 98.8 F 98.6 F Pulse Rate 75 75 78 Respiratory 18 18 16 Rate Blood Pressure 144/100 133/87 135/95 Laboratory Last Values WBC 4.4 K/mm3 (4.0-10.0) 11/23/18 08:32 RBC 4.32 M/mm3 (3.60-5.2) 11/23/18 08:32 Hgb 11.5 GM/dL (10.7-15.3) 11/23/18 08:32 Hct 35.4 % (32.4-45.2) 11/23/18 08:32 MCV 82.0 fl (80-96) 11/23/18 08:32 MCH 26.7 pg (25.7-33.7) 11/23/18 08:32 MCHC 32.6 g/dl (32.0-36.0) 11/23/18 08:32 RDW 14.5 % (11.6-15.6) 11/23/18 08:32 Plt Count 288 K/MM3 (134-434) 11/23/18 08:32 MPV 8.0 fl (7.5-11.1) 11/23/18 08:32 Sodium 143 mmol/L (136-145) 11/23/18 07:00 Potassium 4.0 mmol/L (3.5-5.1) 11/23/18 07:00 Chloride 107 mmol/L (98-107) 11/23/18 07:00 Carbon Dioxide 28 mmol/L (21-32) 11/23/18 07:00 Anion Gap 8 MMOL/L (8-16) 11/23/18 07:00 BUN 10 mg/dL (7-18) 11/23/18 07:00 Creatinine 0.8 mg/dL (0.55-1.3) 11/23/18 07:00 Creat Clearance w eGFR > 60 (>60) 11/23/18 07:00 Random Glucose 96 mg/dL (74-106) 11/23/18 07:00 Calcium 8.4 mg/dL (8.5-10.1) L 11/23/18 07:00 Total Bilirubin 0.7 mg/dL (0.2-1) 11/23/18 07:00 AST 11 U/L (15-37) L 11/23/18 07:00 ALT 18 U/L (13-61) 11/23/18 07:00 Alkaline Phosphatase 92 U/L (45-117) 11/23/18 07:00 Total Protein 6.3 g/dl (6.4-8.2) L 11/23/18 07:00 Albumin 3.1 g/dl (3.4-5.0) L 11/23/18 07:00 RPR Titer Nonreactive (NONREACTIVE) 11/23/18 07:00 Labs noted, no panic values Assessment: 11/24/18 13:27 Withdrawal sx Plan: Continue detox
[2018-11-24] MEDS: THIAMINE HCL 100 MG TABLET (FP) PO SCH (22:43)
[2018-11-25] MEDS: diazePAM 5 MG TABLET PO PRN (05:57)
[2018-11-25] MEDS: BISACODYL 5 MG TABLET.DR (FP) PO PRN (07:13)
[2018-11-25 08:09] VITALS: TEMP 98.6
[2018-11-25 09:27] VITALS: BP 143/90; PULSE 76
[2018-11-25] MEDS ORDERED: METHADONE HCL 10 MG TABLET (FOR DETOX USE ONLY) PO SCH (10:00)
[2018-11-25] MEDS: LISINOPRIL 20 MG TABLET (FP) PO SCH (10:28)
[2018-11-25] MEDS: amLODIPine BESYLATE 10 MG TABLET (FP) PO SCH (10:28)
[2018-11-25] MEDS: PRENATAL VITAMINS W/ FOLIC ACID TABLET (FP) PO SCH (10:28)
[2018-11-25] MEDS: diazePAM 5 MG TABLET PO SCH (10:29)
--- NOTE | 2018-11-25 11:28 | DS ---
[facility] Detox Discharge Summary Admission Date: 11/22/18 Discharge Date: 11/25/18 - History Present History: Alcohol Dependence, Opioid Dependence Additional Comments: 38 years old female admitted on 11/22/18 for alcohol and opiate withdrawal stabilization feeling better today preferred to begin chemical rehab today that manageable withdrawal sx aftercare [facility] Pertinent Past History: encourage community 12 step self help meeting as interim aftercare - Physical Exam Results Vital Signs: Vital Signs Temperature 98.6 F 11/25/18 09:26 Pulse Rate 76 11/25/18 09:26 Respiratory Rate 16 11/25/18 09:26 Blood Pressure 143/90 11/25/18 09:26 O2 Sat by Pulse Oximetry (%) Pertinent Admission Physical Exam Findings: alcohol and opiate withdrawal sx Laboratory Last Values WBC 4.4 K/mm3 (4.0-10.0) 11/23/18 08:32 RBC 4.32 M/mm3 (3.60-5.2) 11/23/18 08:32 Hgb 11.5 GM/dL (10.7-15.3) 11/23/18 08:32 Hct 35.4 % (32.4-45.2) 11/23/18 08:32 MCV 82.0 fl (80-96) 11/23/18 08:32 MCH 26.7 pg (25.7-33.7) 11/23/18 08:32 MCHC 32.6 g/dl (32.0-36.0) 11/23/18 08:32 RDW 14.5 % (11.6-15.6) 11/23/18 08:32 Plt Count 288 K/MM3 (134-434) 11/23/18 08:32 MPV 8.0 fl (7.5-11.1) 11/23/18 08:32 Sodium 143 mmol/L (136-145) 11/23/18 07:00 Potassium 4.0 mmol/L (3.5-5.1) 11/23/18 07:00 Chloride 107 mmol/L (98-107) 11/23/18 07:00 Carbon Dioxide 28 mmol/L (21-32) 11/23/18 07:00 Anion Gap 8 MMOL/L (8-16) 11/23/18 07:00 BUN 10 mg/dL (7-18) 11/23/18 07:00 Creatinine 0.8 mg/dL (0.55-1.3) 11/23/18 07:00 Creat Clearance w eGFR > 60 (>60) 11/23/18 07:00 Random Glucose 96 mg/dL (74-106) 11/23/18 07:00 Calcium 8.4 mg/dL (8.5-10.1) L 11/23/18 07:00 Total Bilirubin 0.7 mg/dL (0.2-1) 11/23/18 07:00 AST 11 U/L (15-37) L 11/23/18 07:00 ALT 18 U/L (13-61) 11/23/18 07:00 Alkaline Phosphatase 92 U/L (45-117) 11/23/18 07:00 Total Protein 6.3 g/dl (6.4-8.2) L 11/23/18 07:00 Albumin 3.1 g/dl (3.4-5.0) L 11/23/18 07:00 RPR Titer Nonreactive (NONREACTIVE) 11/23/18 07:00 lab noted - Treatment Hospital Course: Detox Protocol Followed, Detoxed Safely, Responded well, Discharged Condition Good, Rehab Referral Accepted Patient has Accepted a Rehab Referral to: [facility] - Medication Discharge Medications: Ambulatory Orders Bisacodyl [Bisacodyl -] 5 mg PO TID 11/22/18 Ergocalciferol (Vitamin D2) [Drisdol] 50,000 unit PO WEEKLY 11/22/18 Multivitamin [Multiple Vitamins] 1 each PO DAILY 11/22/18 Naproxen [Naprosyn -] 500 mg PO BID PRN 11/22/18 Valacyclovir HCl [Valtrex] 1,000 mg PO BID 11/22/18 Amlodipine Besylate [Norvasc -] 10 mg PO DAILY #14 tablet 11/25/18 Lisinopril [Prinivil -] 40 mg PO DAILY #14 tablet 11/25/18 - Diagnosis (1) Alcohol dependence with uncomplicated withdrawal Current Visit: Yes Status: Acute (2) Nicotine dependence Current Visit: Yes Status: Acute (3) Opioid dependence with withdrawal Current Visit: Yes Status: Acute (4) Essential hypertension Current Visit: Yes Status: Chronic (5) Drug-induced mood disorder Current Visit: Yes Status: Suspected (6) Hepatitis C Current Visit: Yes Status: Chronic Qualifiers: Viral hepatitis chronicity: chronic Hepatic coma status: without hepatic coma Qualified Code(s): B18.2 - Chronic viral hepatitis C - AMA Did Patient Leave Against Medical Advice: No
[2018-11-26] MEDS ORDERED: METHADONE HCL 5 MG TABLET (FOR DETOX USE ONLY) PO SCH (06:00)
[2018-11-26] MEDS ORDERED: diazePAM 5 MG TABLET PO SCH (10:00)
== END 2018-11-25 11:47 | disposition home or self-care (01) | DRG 773 ==
LOC: YASAS 11:38 → Y6N 14:45
PROVIDERS: ADMIT Neuromusculoskeletal Medicine & OMM; ATTEND Neuromusculoskeletal Medicine & OMM
PROC: HZ2ZZZZ Detoxification Services for Substance Abuse Treatment (ICD-10-PCS; principal; 2018-11-22)
DX: F11.23 Opioid dependence with withdrawal (principal); F10.230 Alcohol dependence with withdrawal, uncomplicated; F14.20 Cocaine dependence, uncomplicated; F17.210 Nicotine dependence, cigarettes, uncomplicated; F19.24 Other psychoactive substance dependence with psychoactive substance-induced mood disorder; I10 Essential (primary) hypertension; B18.2 Chronic viral hepatitis C; E73.9 Lactose intolerance, unspecified; Z87.42 Personal history of other diseases of the female genital tract
CPT/HCPCS: 36415; 80053; 85027; 86593

== ENCOUNTER 2018-12-22 19:01 | Inpatient (IN) | payer OTHER ==
[2018-12-22 20:15] VITALS: BMI 31.7
--- NOTE | 2018-12-22 21:24 | HP ---
COWS - Scale Resting Pulse: 0= [place] 80 or Below Sweatin=Flushed/Facial Moisture Restless Observation: 0= Sits Still Pupil Size: 0= Normal to Room Light Bone or Joint Aches: 4=Acute Joint/Muscle Pain Runny Nose/ Eye Tearin= Runny Nose/Eyes GI Upset > 30mins: 2= Nausea/Diarrhea (DIARRHEA X 3) Tremor Observation: 2= Slight Tremor Visible Yawning Observation: 1= 1-2x During Session Anxiety or Irritability: 2=Irritable/Anxious Goose Flesh Skin: 3=Piloerection COWS Score: 18 CIWA Score Nausea/Vomitin-Mild Nausea/No Vomiting Muscle Tremors: 4-Moderate,w/Arms Extend Anxiety: 3 Agitation: 3 Paroxysmal Sweats: 2 Orientation: 1-Uncertain about Date Tacttile Disturbances: 0-None Auditory Disturbances: 0-None Visual Disturbances: 0-None Headache: 3-Moderate CIWA-Ar Total Score: 17 - Admission Criteria OASAS Guidelines: Admission for Medically Managed Detox: Requires at least one of the followin. CIWA greater than 12 2. Seizures within the past 24 hours 3. Delirium tremens within the past 24 hours 4. Hallucinations within the past 24 hours 5. Acute intervention needed for co occurring medical disorder 6. Acute intervention needed for co occurring psychiatric disorder 7. Severe withdrawal that cannot be handled at a lower level of care (continued vomiting, continued diarrhea, abnormal vital signs) requiring intravenous medication and/or fluids 8. [facility] Chief Complaint: Alcohol and heroin withdrawal symptoms Allergies/Adverse Reactions: Allergies Allergy/AdvReac Type Severity Reaction Status Date / Time No Known Drug Allergies Allergy Unknown Verified 12/22/18 21:01 lactose AdvReac LACTOSE Verified 12/22/18 21:01 INTOLERANCE History of Present Illness: 38 years old female with 24 years of alcohol and heroin dependence is seeking admission to detox. Patient was in detox last at [facility] and reports 2 years of sobriety. She has medical history of Hep C, hypertension, genital herpes, anxiety and depression. Patient denies suicide attempt or suicidal ideation at this time. Exam Limitations: No Limitations - Ebola screening Have you traveled outside of the country in the last 21 days: No (N) Have you had contact with anyone from an Ebola affected area: No Have you been sick,other than usual withdrawal symptoms: No Do you have a fever: No - Review of Systems Constitutional: Chills, Night Sweats, Changes in sleep EENT: reports: Sinus Pressure Respiratory: reports: No Symptoms reported Cardiac: reports: No Symptoms Reported GI: reports: Diarrhea, Nausea, Poor Appetite, Poor Fluid Intake, Abdominal cramping : reports: No Symptoms Reported Musculoskeletal: reports: Back Pain Integumentary: reports: Dryness, Flushing Neuro: reports: Tremors Endocrine: reports: No Symptoms Reported Hematology: reports: No Symptoms Reported Psychiatric: reports: Anxious, Depressed Other Systems: Reviewed and Negative Patient History - Patient Medical History Hx Anemia: No Hx Asthma: No Hx Chronic Obstructive Pulmonary Disease (COPD): No Hx Cancer: No Hx Cardiac Disorders: No Hx Congestive Heart Failure: No Hx Hypertension: Yes (LISINOPRIL) Hx Hypercholesterolemia: No Hx Pacemaker: No HX Cerebrovascular Accident: No Hx Seizures: No Hx Dementia: No Hx Diabetes: No Hx Gastrointestinal Disorders: No Hx Liver Disease: Yes (HEP C - TREATED ) Hx Genitourinary Disorders: No Hx Sexually Transmitted Disorders: Yes (Hx of genital herpes- TREATED) Hx Renal Disease (ESRD): No Hx Thyroid Disease: No Hx Human Immunodeficiency Virus (HIV): No (NEGATIVE 2018) Hx Hepatitis C: Yes (NO TREATMENT) Hx Depression: Yes Hx Suicide Attempt: No Hx Bipolar Disorder: No Hx Schizophrenia: No - Patient Surgical History Past Surgical History: Yes Hx Neurologic Surgery: No Hx Cataract Extraction: No Hx Cardiac Surgery: No Hx Lung Surgery: No Hx Breast Surgery: No Hx Breast Biopsy: No Hx Abdominal Surgery: No Hx Appendectomy: No Hx Cholecystectomy: No Hx Genitourinary Surgery: No Hx Section: No Hx Orthopedic Surgery: No Other Surgical History: I&D OF ABSCESS LT. FOREARM Anesthesia Reaction: No - PPD History Previous Implant?: Yes Date: 11/24/18 Results: 0 MM PPD to be Administered?: No - Reproductive History Patient is a Female of Child Bearing Age (11 -55 yrs old): Yes Last Menstrual Period: 10/23/18 Patient : No - Smoking Cessation Smoking history: Current every day smoker Have you smoked in the past 12 months: Yes Aproximately how many cigarettes per day: 10 Cigars Per Day: 0 Hx Chewing Tobacco Use: No Initiated information on smoking cessation: Yes 'Breaking Loose' booklet given: 12/22/18 - Substance & Tx. History Hx Alcohol Use: Yes Hx Substance Use: Yes Substance Use Type: Alcohol, Cocaine, Heroin - Substances Abused Alcohol Route: Oral Frequency: Daily Amount used: beer- 7 (40oz) Age of first use: 16 Date of Last Use: 12/21/18 Heroin Route: Injection Frequency: Daily Amount used: 10 bags Age of first use: 23 Date of Last Use: 12/21/18 Cocaine Route: Injection Frequency: Daily Amount used: 10 bags Age of first use: 23 Date of Last Use: 12/21/18 Family Disease History - Family Disease History Family Disease History: Diabetes: Father (etoh drugs), Other: Father, Mother ( etoh drugs) Admission Physical Exam [facility] - Vital Signs Vital Signs: Vital Signs - 24 hr 12/22/18 20:11 Temperature 98.7 F Pulse Rate 72 Respiratory 18 Rate Blood Pressure 141/96 - Physical General Appearance: Yes: Moderate Distress, Tremorous, Irritable, Sweating, Anxious HEENTM: Yes: EOMI, Normal ENT Inspection, Normal Voice, NEERAJ Respiratory: Yes: Lungs Clear, Normal Breath Sounds, No Respiratory Distress Neck: Yes: Supple Breast: Yes: Breast Exam Deferred Cardiology: Yes: Regular Rhythm, Regular Rate Abdominal: Yes: Normal Bowel Sounds Genitourinary: Yes: Within Normal Limits Back: Yes: Normal Inspection Musculoskeletal: Yes: Back pain Extremities: Yes: Tremors Neurological: Yes: Alert, Normal Mood/Affect Integumentary: Yes: Warm Lymphatic: Yes: Within Normal Limits - Diagnostic (1) Hep C w/o coma, chronic Current Visit: Yes Status: Acute (2) Cirrhosis of liver Current Visit: Yes Status: Acute Qualifiers: Hepatic cirrhosis type: alcoholic cirrhosis (3) Hypertension Current Visit: Yes Status: Acute (4) Anxiety Current Visit: Yes Status: Acute (5) Depression Current Visit: Yes Status: Acute Qualifiers: Depression Type: unspecified Qualified Code(s): F32.9 - Major depressive disorder, single episode, unspecified (6) Genital herpes Current Visit: Yes Status: Acute (7) Alcohol dependence with uncomplicated withdrawal Current Visit: Yes Status: Chronic (8) Nicotine dependence Current Visit: Yes Status: Chronic Cleared for Admission [facility] - Detox or Rehab [facility] Level of Care: Medically Managed Detox Regimen/Protocol: Methadone/Librium S Breath Alcohol Content Breath Alcohol Content: 0 Urine Drug Screen - Results Drug Screen Negative: No Urine Drug Screen Results: BETTYE-Cocaine, OPI-Opiates, BZO-Benzodiazepines, FEN- Fentanyl Inpatient Rehab Admission - Rehab Decision to Admit Inpatient rehab admission?: No - Initial Determination Are CD services needed?: No Free of communicable disease: Yes Not in need of hospitalization: Yes
[2018-12-22] MEDS ORDERED: MENTHOL/PHENOL 1 EACH UD MM PRN (21:35)
[2018-12-22] MEDS ORDERED: IBUPROFEN 400 MG TABLET (FP) PO PRN (21:35)
[2018-12-22] MEDS ORDERED: MAG HYDROX/AL HYDROX/SIMETH 30 ML UNIT-DOSE CUP PO PRN (21:35)
[2018-12-22] MEDS ORDERED: NICOTINE POLACRILEX 2 MG GUM BC PRN (21:35)
[2018-12-22] MEDS ORDERED: METHADONE HCL 10 MG TABLET (FOR DETOX USE ONLY) PO ONE ×2 (21:35→23:00)
[2018-12-22] MEDS ORDERED: P-EPHED 60MG/TRIPROLIDI 2.5MG TABLET PO PRN (21:35)
[2018-12-22] MEDS ORDERED: MAGNESIUM CITRATE 300 ML BOTTLE PO PRN (21:35)
[2018-12-22] MEDS ORDERED: guaiFENesin/D-METHORPHAN HB 10 ML UNIT-DOSE CUPS PO PRN (21:35)
[2018-12-22] MEDS ORDERED: chlordiazePOXIDE HCL 25 MG CAPSULE PO PRN (21:35)
[2018-12-22] MEDS ORDERED: ACETAMINOPHEN 325 MG TABLET (FP) PO PRN (21:35)
[2018-12-22] MEDS ORDERED: MAGNESIUM HYDROX 2400MG/30ML ORAL SUSPENSION 30 ML CUP PO PRN (21:35)
[2018-12-22] MEDS ORDERED: LOPERAMIDE HCL 2 MG CAPSULE PO PRN (21:35)
[2018-12-22] MEDS ORDERED: MELATONIN 5 MG TABLETS PO PRN (22:00)
[2018-12-22] MEDS: chlordiazePOXIDE HCL 25 MG CAPSULE PO SCH (23:05)
[2018-12-22] MEDS: THIAMINE HCL 100 MG TABLET (FP) PO SCH (23:10)
[2018-12-23] MEDS: chlordiazePOXIDE HCL 25 MG CAPSULE PO SCH ×2 (06:22→10:13)
[2018-12-23] MEDS ORDERED: METHADONE HCL 10 MG TABLET (FOR DETOX USE ONLY) PO SCH (10:00)
[2018-12-23] MEDS: PRENATAL VITAMINS W/ FOLIC ACID TABLET (FP) PO SCH (10:12)
[2018-12-23] MEDS: amLODIPine BESYLATE 10 MG TABLET (FP) PO SCH (10:12)
[2018-12-23] MEDS: LISINOPRIL 20 MG TABLET (FP) PO SCH (10:12)
[2018-12-23] MEDS: NICOTINE 14 MG/24 HOURS TOPICAL PATCH TD SCH (10:14)
[2018-12-23] MEDS ORDERED: PERMETHRIN 5% TOPICAL CREAM 60 GM TUBE TP ONE (13:56)
--- NOTE | 2018-12-23 14:03 | PN ---
S CIWA - CIWA Score Nausea/Vomitin-No Nausea/No Vomiting Muscle Tremors: None Anxiety: 4-Mod. Anxious/Guarded Agitation: 4-Moderately Restless Paroxysmal Sweats: 2 Orientation: 0-Oriented Tacttile Disturbances: 0-None Auditory Disturbances: 0-None Visual Disturbances: 0-None Headache: 0-None Present CIWA-Ar Total Score: 10 S COWS - Scale Resting Pulse: 0= [place] 80 or Below Sweatin=Flushed/Facial Moisture Restless Observation: 1= Difficult to Sit Still Pupil Size: 0= Normal to Room Light Bone or Joint Aches: 2= Severe Diffuse Aches Runny Nose/ Eye Tearin= None GI Upset > 30mins: 0= None Tremor Observation of Outstretched Hands: 0= None Yawning Observation: 0= None Anxiety or Irritability: 2=Irritable/Anxious Goose Flesh Skin: 0=Smooth Skin COWS Score: 7 BHS Progress Note (SOAP) Subjective: PATIENT C/O CHILLS/SWEATING, BODY ACHES, ANXIETY AND IRRITABILITY. PATIENT REPORTED TO RN THAT SHE WAS EXPOSED TO BED BUGS PRIOR TO ADMISSION. PATIENT STATES SHE DID NOT SAY ANYTHING WHEN ADMITTED SHE DID NOT WANT TO BE DENIED ADMISSION. Objective: 12/23/18 13:59 Vital Signs Temperature 99 F 12/23/18 09:42 Pulse Rate 80 12/23/18 09:42 Respiratory Rate 16 12/23/18 09:42 Blood Pressure 138/88 12/23/18 09:42 O2 Sat by Pulse Oximetry (%) PE: ALERT AND ORIENTED X 3 SKIN + FACIAL MOISTURE, NO VISIBLE INSECT BITES/BURROWS HAIR COVERED WITH BONNET EXT FULL ROM, NO TREMORS ANXIOUS AND IRRITABLE Assessment: 12/23/18 14:02 WITHDRAWAL SX SCABIES EXPOSURE Plan: CONTINUE DETOX REGIMEN ENCOURAGE ORAL FLUIDS ELIMITE TP ORDERED PATIENT IN ROOM WITHOUT PEER SINCE ADMISSION CONTINUE TO MONITOR CLINICALLY
[2018-12-23] MEDS ORDERED: diazePAM 5 MG TABLET PO ONE (15:02)
[2018-12-23] MEDS: TOLNAFTATE 1% CREAM 15 GM TUBE TP SCH (22:25)
[2018-12-23] MEDS: HYDROCORTISONE 0.5% TOPICAL CREAM 30 GM TUBE TP SCH (22:25)
[2018-12-23] MEDS: THIAMINE HCL 100 MG TABLET (FP) PO SCH (22:25)
[2018-12-23] MEDS ORDERED: chlordiazePOXIDE HCL 25 MG CAPSULE PO SCH (23:00)
[2018-12-24] MEDS: diazePAM 5 MG TABLET PO PRN ×4 (05:31→21:18)
[2018-12-24] MEDS ORDERED: METHADONE HCL 5 MG TABLET (FOR DETOX USE ONLY) PO SCH (10:00)
[2018-12-24] MEDS: NICOTINE 14 MG/24 HOURS TOPICAL PATCH TD SCH (10:14)
[2018-12-24] MEDS: PRENATAL VITAMINS W/ FOLIC ACID TABLET (FP) PO SCH (10:14)
[2018-12-24] MEDS: amLODIPine BESYLATE 10 MG TABLET (FP) PO SCH (10:15)
[2018-12-24] MEDS: LISINOPRIL 20 MG TABLET (FP) PO SCH (10:15)
[2018-12-24] MEDS: HYDROCORTISONE 0.5% TOPICAL CREAM 30 GM TUBE TP SCH ×2 (10:16→22:42)
[2018-12-24] MEDS: TOLNAFTATE 1% CREAM 15 GM TUBE TP SCH ×2 (10:16→22:42)
--- NOTE | 2018-12-24 11:23 | PN ---
[facility] CIWA - CIWA Score Nausea/Vomitin-No Nausea/No Vomiting Muscle Tremors: 4-Moderate,w/Arms Extend Anxiety: 4-Mod. Anxious/Guarded Agitation: 4-Moderately Restless Paroxysmal Sweats: 3 Orientation: 0-Oriented Tacttile Disturbances: 0-None Auditory Disturbances: 0-None Visual Disturbances: 0-None Headache: 0-None Present CIWA-Ar Total Score: 15 BHS COWS - Scale Resting Pulse: 1= [place] 81-100 Sweatin=Flushed/Facial Moisture Restless Observation: 1= Difficult to Sit Still Pupil Size: 0= Normal to Room Light Bone or Joint Aches: 2= Severe Diffuse Aches Runny Nose/ Eye Tearin= Runny Nose/Eyes GI Upset > 30mins: 0= None Tremor Observation of Outstretched Hands: 1= Tremor [place], Not Seen Yawning Observation: 2= >3x During Session Anxiety or Irritability: 2=Irritable/Anxious Goose Flesh Skin: 0=Smooth Skin COWS Score: 13 S Progress Note (SOAP) Subjective: agitation sweats shakes body aches Objective: 12/24/18 11:27 Vital Signs Temperature 98.8 F 12/24/18 10:00 Pulse Rate 81 12/24/18 10:00 Respiratory Rate 18 12/24/18 10:00 Blood Pressure 138/93 12/24/18 10:00 O2 Sat by Pulse Oximetry (%) labs pending [id number] ambulating no acute distress Assessment: 12/24/18 11:31 withdrawal sx Plan: continue detox increase fluids labs pending
[2018-12-24 18:28] LABS: URINE APPEARANCE SLCLOUDY; URINE BILIRUBIN NEGATIVE (<2.0 mg/dL); URINE COLOR YELLOW; URINE GLUCOSE (UA) NEGATIVE (NEGATIVE); URINE KETONE NEGATIVE (NEGATIVE); URINE LEUK ESTERASE NEGATIVE (NEGATIVE); URINE NITRITE NEGATIVE (NEGATIVE); URINE PROTEIN NEGATIVE (NEGATIVE)
[2018-12-24 22:40] VITALS: TEMP 98.2
[2018-12-24] MEDS: THIAMINE HCL 100 MG TABLET (FP) PO SCH (22:42)
[2018-12-24] MEDS ORDERED: chlordiazePOXIDE 5 MG CAPSULE PO SCH (23:00)
[2018-12-25] MEDS: diazePAM 5 MG TABLET PO PRN (05:51)
[2018-12-25 06:41] VITALS: BP 132/98; PULSE 80
--- NOTE | 2018-12-25 09:55 | PN ---
S Progress Note Note: pt was asked why she wont complete her detox regimen and her response was I dont need to tell you anything I just want to get the fuck out of here. pt signed out AMA.
--- NOTE | 2018-12-25 09:57 | DS ---
[facility] Detox Discharge Summary Admission Date: 12/22/18 - History Present History: Alcohol Dependence, Cocaine Dependence, Opioid Dependence - Physical Exam Results Vital Signs: Vital Signs Temperature 98.2 F 12/25/18 06:00 Pulse Rate 80 12/25/18 06:00 Respiratory Rate 18 12/25/18 06:00 Blood Pressure 132/98 12/25/18 06:00 O2 Sat by Pulse Oximetry (%) - Treatment Hospital Course: Responded well, Discharged Condition Good - Medication Discharge Medications: Ambulatory Orders Bisacodyl [Bisacodyl -] 5 mg PO TID 11/22/18 Ergocalciferol (Vitamin D2) [Drisdol] 50,000 unit PO WEEKLY 11/22/18 Naproxen [Naprosyn -] 500 mg PO BID PRN 11/22/18 Valacyclovir HCl [Valtrex] 1,000 mg PO BID 11/22/18 Amlodipine Besylate [Norvasc -] 10 mg PO DAILY #14 tablet 11/25/18 Lisinopril [Prinivil -] 40 mg PO DAILY #14 tablet 11/25/18 - Diagnosis (1) Anxiety Current Visit: Yes Status: Chronic (2) Cirrhosis of liver Current Visit: Yes Status: Chronic Qualifiers: Hepatic cirrhosis type: alcoholic cirrhosis Ascites presence: unspecified Qualified Code(s): K70.30 - Alcoholic cirrhosis of liver without ascites (3) Depression Current Visit: Yes Status: Acute Qualifiers: Depression Type: unspecified Qualified Code(s): F32.9 - Major depressive disorder, single episode, unspecified (4) Genital herpes Current Visit: Yes Status: Chronic Qualifiers: Herpes simplex infection site: unspecified Qualified Code(s): A60.00 - Herpesviral infection of urogenital system, unspecified (5) Hep C w/o coma, chronic Current Visit: Yes Status: Acute (6) Hypertension Current Visit: Yes Status: Chronic Qualifiers: Hypertension type: essential hypertension Qualified Code(s): I10 - Essential (primary) hypertension (7) Alcohol dependence with uncomplicated withdrawal Current Visit: Yes Status: Chronic (8) Nicotine dependence Current Visit: Yes Status: Chronic (9) Opioid dependence with withdrawal Current Visit: Yes Status: Acute (10) Bipolar I disorder, most recent episode mixed Current Visit: No Status: Chronic (11) Bipolar II disorder Current Visit: No Status: Chronic (12) Cocaine dependence Current Visit: Yes Status: Chronic Qualifiers: Substance use status: uncomplicated Qualified Code(s): F14.20 - Cocaine dependence, uncomplicated (13) Drug-induced mood disorder Current Visit: No Status: Suspected - AMA Did Patient Leave Against Medical Advice: Yes (going home. declined referral)
[2018-12-25] MEDS ORDERED: chlordiazePOXIDE HCL 10 MG CAPSULE PO SCH (23:00)
[2018-12-26] MEDS ORDERED: METHADONE HCL 10 MG TABLET (FOR DETOX USE ONLY) PO SCH (10:00)
[2018-12-27] MEDS ORDERED: METHADONE HCL 5 MG TABLET (FOR DETOX USE ONLY) PO SCH (06:00)
== END 2018-12-25 09:11 | disposition left against medical advice (07) | DRG 770 ==
LOC: YASAS 19:01 → Y6N 21:20
PROVIDERS: ADMIT Surgery; ATTEND Surgery
PROC: HZ2ZZZZ Detoxification Services for Substance Abuse Treatment (ICD-10-PCS; principal; 2018-12-22)
DX: F11.23 Opioid dependence with withdrawal (principal); F10.230 Alcohol dependence with withdrawal, uncomplicated; F14.20 Cocaine dependence, uncomplicated; F17.210 Nicotine dependence, cigarettes, uncomplicated; F31.81 Bipolar II disorder; F41.9 Anxiety disorder, unspecified; F19.24 Other psychoactive substance dependence with psychoactive substance-induced mood disorder; I10 Essential (primary) hypertension; K70.30 Alcoholic cirrhosis of liver without ascites; Z87.42 Personal history of other diseases of the female genital tract; Z20.7 Contact with and (suspected) exposure to pediculosis, acariasis and other infestations
CPT/HCPCS: 81003

== ENCOUNTER 2022-05-05 09:30 | Inpatient (IN) | payer OTHER ==
[2022-05-05 10:25] VITALS: BMI 30.9
[2022-05-05] MEDS ORDERED: LOPERAMIDE HCL 2 MG CAPSULE PO PRN (11:38)
[2022-05-05] MEDS ORDERED: IBUPROFEN 400 MG TABLET (FP) PO PRN (11:38)
[2022-05-05] MEDS ORDERED: DICYCLOMINE HCL 10 MG CAPSULE PO PRN (11:38)
[2022-05-05] MEDS ORDERED: MAGNESIUM CITRATE 300 ML BOTTLE PO PRN (11:38)
[2022-05-05] MEDS ORDERED: MAG HYDROX/AL HYDROX/SIMETH 30 ML UNIT-DOSE CUP PO PRN (11:38)
[2022-05-05] MEDS ORDERED: IBUPROFEN 600 MG TABLET (FP) PO PRN (11:38)
[2022-05-05] MEDS ORDERED: methaDONE HCL 10 MG TABLET (FOR DETOX USE ONLY) PO ONE (11:38)
[2022-05-05] MEDS ORDERED: BISMUTH SUBSALICYLATE 262 MG/15 ML BTL PO PRN (11:38)
[2022-05-05] MEDS ORDERED: NALOXONE HCL (KLOXXADO) 8 MG SPRAY NS PRN (11:38)
[2022-05-05] MEDS ORDERED: ACETAMINOPHEN 325 MG TABLET (FP) PO PRN ×2 (11:38)
[2022-05-05] MEDS ORDERED: NICOTINE 10 MG CARTRIDGE (INHALER) IH PRN (11:38)
[2022-05-05] MEDS ORDERED: BENZOCAINE/MENTHOL (CHLORASEPTIC ) LOZENGE MM PRN (11:38)
[2022-05-05] MEDS ORDERED: chlordiazePOXIDE HCL 25 MG CAPSULE PO PRN (11:38)
[2022-05-05] MEDS ORDERED: ONDANSETRON *ODT* 4 MG TABLET SL PRN (11:38)
[2022-05-05] MEDS ORDERED: MAGNESIUM HYDROX 2400MG/30ML ORAL SUSPENSION 30 ML CUP PO PRN (11:38)
[2022-05-05] MEDS: hydrOXYzine PAMOATE 25 MG CAPSULE (FP) PO SCH ×3 (15:02→23:16)
[2022-05-05 17:08] LABS: HEMATOCRIT 38.3 % (32.4-45.2); HEMOGLOBIN 12.2 GM/dL (10.7-15.3); MCH 25.4 pg (25.7-33.7); MCHC 31.8 g/dl (32.0-36.0); MEAN CELL VOLUME 79.8 fl (80-96); MEAN PLT VOLUME 8.6 fl (7.5-11.1); PLATELET COUNT 323 10^3/uL (134-434); RBC 4.79 M/mm3 (3.60-5.2); RDW 17.8 % (11.6-15.6); WHITE BLOOD COUNT 4.4 K/mm3 (4.0-10.0)
[2022-05-05 17:10] LABS: ALBUMIN 3.6 g/dl (3.4-5.0)
[2022-05-05 17:12] LABS: TOT PROT 7.3 g/dl (6.4-8.2)
[2022-05-05 17:14] LABS: BILIRUBIN,TOTAL 0.5 mg/dL (0.2-1)
[2022-05-05] MEDS: cloNIDine HCL 0.1 MG TABLET PO PRN (17:35)
[2022-05-05] MEDS: chlordiazePOXIDE HCL 25 MG CAPSULE PO SCH ×2 (17:35→23:15)
[2022-05-05 18:03] LABS: HIV INTERPRETATION NEGATIVE (NEGATIVE)
[2022-05-05] MEDS: MELATONIN 5 MG TABLETS PO SCH (23:16)
[2022-05-05] MEDS: THIAMINE HCL 100 MG TABLET (FP) PO SCH (23:16)
[2022-05-06] MEDS: chlordiazePOXIDE HCL 25 MG CAPSULE PO SCH ×4 (06:50→22:21)
[2022-05-06] MEDS: hydrOXYzine PAMOATE 25 MG CAPSULE (FP) PO SCH ×2 (06:56→10:35)
[2022-05-06] MEDS ORDERED: methaDONE HCL 10 MG TABLET (FOR DETOX USE ONLY) ONE (09:53)
[2022-05-06] MEDS: PRENATAL VITAMINS W/ FOLIC ACID TABLET (FP) PO SCH (10:31)
[2022-05-06 17:05] LABS: EPI CELLS >36 /uL (0-25.1); HYALINE CASTS 8 /uL (0-3.1); URINE APPEARANCE CLOUDY; URINE BACTERIA 2856 /uL (0-1359); URINE BILIRUBIN NEGATIVE (NEGATIVE); URINE COLOR YELLOW; URINE GLUCOSE (UA) NEGATIVE (NEGATIVE); URINE KETONE NEGATIVE (NEGATIVE); URINE LEUK ESTERASE 3+ (NEGATIVE); URINE NITRITE NEGATIVE (NEGATIVE); URINE PROTEIN NEGATIVE (NEGATIVE); URINE RBC 20 /uL (0-23.9); URINE UROBILINOGEN 0.2 mg/dL (0.2-1.0); URINE WBC 379 /uL (0-25.8)
[2022-05-06] MEDS: MELATONIN 5 MG TABLETS PO SCH (22:21)
[2022-05-06] MEDS: THIAMINE HCL 100 MG TABLET (FP) PO SCH (22:21)
[2022-05-07] MEDS: chlordiazePOXIDE HCL 25 MG CAPSULE PO SCH ×4 (07:14→22:26)
[2022-05-07] MEDS ORDERED: methaDONE HCL 10 MG TABLET (FOR DETOX USE ONLY) PO ONE (10:00)
[2022-05-07] MEDS: PRENATAL VITAMINS W/ FOLIC ACID TABLET (FP) PO SCH (10:39)
[2022-05-07] MEDS: SULFAMETHOXAZOLE/TRIMETHOPRIM 800MG/160MG D.S. TABLET PO SCH ×2 (14:08→22:26)
[2022-05-07] MEDS: cloNIDine HCL 0.1 MG TABLET PO PRN (17:57)
[2022-05-07] MEDS: THIAMINE HCL 100 MG TABLET (FP) PO SCH (22:26)
[2022-05-07] MEDS: MELATONIN 5 MG TABLETS PO SCH (22:26)
[2022-05-07] MEDS: hydrOXYzine PAMOATE 25 MG CAPSULE (FP) PO PRN (22:26)
[2022-05-07] MEDS: METHOCARBAMOL 500 MG TABLET PO PRN (22:27)
[2022-05-08] MEDS ORDERED: chlordiazePOXIDE HCL 10 MG CAPSULE PO PRN
[2022-05-08] MEDS: chlordiazePOXIDE HCL 10 MG CAPSULE PO SCH ×2 (06:05→10:50)
[2022-05-08 09:14] VITALS: BP 139/67; PULSE 65; TEMP 97.1
[2022-05-08] MEDS ORDERED: methaDONE HCL 10 MG TABLET (FOR DETOX USE ONLY) ONE (10:02)
[2022-05-08] MEDS: SULFAMETHOXAZOLE/TRIMETHOPRIM 800MG/160MG D.S. TABLET PO SCH (10:51)
[2022-05-08] MEDS: hydrOXYzine PAMOATE 25 MG CAPSULE (FP) PO PRN (10:51)
[2022-05-08] MEDS: METHOCARBAMOL 500 MG TABLET PO PRN (10:51)
[2022-05-08] MEDS: PRENATAL VITAMINS W/ FOLIC ACID TABLET (FP) PO SCH (10:52)
[2022-05-09] MEDS ORDERED: chlordiazePOXIDE HCL 10 MG CAPSULE PO SCH (05:00)
[2022-05-09] MEDS ORDERED: methaDONE HCL 10 MG TABLET (FOR DETOX USE ONLY) PO ONE (10:00)
[2022-05-10] MEDS ORDERED: chlordiazePOXIDE HCL 10 MG CAPSULE PO ONE (05:00)
== END 2022-05-08 15:23 | disposition left against medical advice (07) | DRG 770 ==
LOC: YASAS 09:30 → Y3N 12:12
PROVIDERS: ADMIT Allergy & Immunology; ATTEND Surgery
PROC: HZ2ZZZZ Detoxification Services for Substance Abuse Treatment (ICD-10-PCS; principal; 2022-05-05)
DX: F11.23 Opioid dependence with withdrawal (principal); F10.230 Alcohol dependence with withdrawal, uncomplicated; F14.20 Cocaine dependence, uncomplicated; F12.20 Cannabis dependence, uncomplicated; F17.210 Nicotine dependence, cigarettes, uncomplicated; F41.9 Anxiety disorder, unspecified; F32.A Depression, unspecified; I10 Essential (primary) hypertension; H91.91 Unspecified hearing loss, right ear; N39.0 Urinary tract infection, site not specified; R73.9 Hyperglycemia, unspecified; Z91.011 Allergy to milk products
CPT/HCPCS: 36415; 80053; 81003; 81025; 85027; 86780; 87389; 87811; C9803-CS; J0735; U0003; U0005

== ENCOUNTER 2022-06-30 18:07 | Inpatient (IN) | payer OTHER ==
[2022-06-30 21:40] VITALS: BMI 30.9
[2022-06-30] MEDS ORDERED: hydrOXYzine PAMOATE 25 MG CAPSULE (FP) PO PRN (21:49)
[2022-06-30] MEDS ORDERED: NICOTINE POLACRILEX 2 MG GUM BUC PRN (21:49)
[2022-06-30] MEDS ORDERED: IBUPROFEN 400 MG TABLET (FP) PO PRN (21:49)
[2022-06-30] MEDS ORDERED: guaiFENesin 200 MG/10 ML 10 ML UNIT-DOSE CUPS PO PRN (21:49)
[2022-06-30] MEDS ORDERED: NALOXONE HCL (KLOXXADO) 8 MG SPRAY NS PRN (21:49)
[2022-06-30] MEDS ORDERED: LOPERAMIDE HCL 2 MG CAPSULE PO PRN (21:49)
[2022-06-30] MEDS ORDERED: NALOXONE HCL 0.4 MG/ML VIAL IM PRN (21:49)
[2022-06-30] MEDS ORDERED: MAGNESIUM HYDROX 2400MG/30ML ORAL SUSPENSION 30 ML CUP PO PRN (21:49)
[2022-06-30] MEDS ORDERED: MAG HYDROX/AL HYDROX/SIMETH 30 ML UNIT-DOSE CUP PO PRN (21:49)
[2022-06-30] MEDS ORDERED: ONDANSETRON *ODT* 4 MG TABLET SL PRN (21:49)
[2022-06-30] MEDS ORDERED: DICYCLOMINE HCL 10 MG CAPSULE PO PRN (21:49)
[2022-06-30] MEDS ORDERED: P-EPHED 60MG/TRIPROLIDI 2.5MG TABLET PO PRN (21:49)
[2022-06-30] MEDS ORDERED: BISMUTH SUBSALICYLATE 524 MG/30 ML PO PRN (21:49)
[2022-06-30] MEDS ORDERED: ACETAMINOPHEN 325 MG TABLET (FP) PO PRN ×2 (21:49)
[2022-06-30] MEDS ORDERED: MAGNESIUM CITRATE 300 ML BOTTLE PO PRN (21:49)
[2022-06-30] MEDS ORDERED: BENZOCAINE/MENTHOL (CHLORASEPTIC ) LOZENGE MM PRN (21:49)
[2022-07-01] MEDS: MELATONIN 5 MG TABLETS PO SCH ×2 (00:15→23:01)
[2022-07-01] MEDS: METHOCARBAMOL 500 MG TABLET PO PRN ×2 (00:15→10:52)
[2022-07-01] MEDS: THIAMINE HCL 100 MG TABLET (FP) PO SCH ×2 (00:15→23:02)
[2022-07-01] MEDS ORDERED: methaDONE HCL 10 MG TABLET (FOR DETOX USE ONLY) PO ONE (10:00)
[2022-07-01] MEDS: cloNIDine HCL 0.1 MG TABLET PO PRN (10:52)
[2022-07-01] MEDS: PRENATAL VITAMINS W/ FOLIC ACID TABLET (FP) PO SCH (10:53)
[2022-07-01] MEDS: NICOTINE 14 MG/24 HOURS TOPICAL PATCH TD SCH (10:53)
[2022-07-01] MEDS: IBUPROFEN 600 MG TABLET (FP) PO PRN (18:44)
[2022-07-02] MEDS: cloNIDine HCL 0.1 MG TABLET PO PRN ×2 (07:36→17:42)
[2022-07-02] MEDS: METHOCARBAMOL 500 MG TABLET PO PRN ×2 (10:32→22:49)
[2022-07-02] MEDS: PRENATAL VITAMINS W/ FOLIC ACID TABLET (FP) PO SCH (10:33)
[2022-07-02] MEDS: NICOTINE 14 MG/24 HOURS TOPICAL PATCH TD SCH (10:33)
[2022-07-02] MEDS: THIAMINE HCL 100 MG TABLET (FP) PO SCH (22:49)
[2022-07-02] MEDS: MELATONIN 5 MG TABLETS PO SCH (22:49)
[2022-07-03] MEDS ORDERED: methaDONE HCL 10 MG TABLET (FOR DETOX USE ONLY) PO ONE (10:00)
[2022-07-03] MEDS: PRENATAL VITAMINS W/ FOLIC ACID TABLET (FP) PO SCH (10:30)
[2022-07-03] MEDS: NICOTINE 14 MG/24 HOURS TOPICAL PATCH TD SCH (10:31)
[2022-07-03] MEDS: cloNIDine HCL 0.1 MG TABLET PO PRN ×2 (10:33→18:09)
[2022-07-03] MEDS: METHOCARBAMOL 500 MG TABLET PO PRN ×2 (13:29→22:43)
[2022-07-03] MEDS: IBUPROFEN 600 MG TABLET (FP) PO PRN (13:29)
[2022-07-03] MEDS: THIAMINE HCL 100 MG TABLET (FP) PO SCH (22:43)
[2022-07-03] MEDS: MELATONIN 5 MG TABLETS PO SCH (22:43)
[2022-07-04 07:13] VITALS: RESP 18; TEMP 96.8
[2022-07-04 08:42] VITALS: BP 134/85; PULSE 70
[2022-07-04] MEDS: METHOCARBAMOL 500 MG TABLET PO PRN (09:39)
[2022-07-04] MEDS: IBUPROFEN 600 MG TABLET (FP) PO PRN (09:41)
[2022-07-04] MEDS: PRENATAL VITAMINS W/ FOLIC ACID TABLET (FP) PO SCH (09:43)
[2022-07-04] MEDS: NICOTINE 14 MG/24 HOURS TOPICAL PATCH TD SCH (09:44)
[2022-07-05] MEDS ORDERED: methaDONE HCL 10 MG TABLET (FOR DETOX USE ONLY) PO ONE (10:00)
== END 2022-07-04 12:38 | disposition left against medical advice (07) | DRG 770 ==
LOC: YASAS 18:07 → Y3N 23:36
PROVIDERS: ADMIT Allergy & Immunology; ATTEND Allergy & Immunology
PROC: HZ2ZZZZ Detoxification Services for Substance Abuse Treatment (ICD-10-PCS; principal; 2022-06-30)
DX: F11.23 Opioid dependence with withdrawal (principal); F10.230 Alcohol dependence with withdrawal, uncomplicated; F14.20 Cocaine dependence, uncomplicated; F17.210 Nicotine dependence, cigarettes, uncomplicated; F31.60 Bipolar disorder, current episode mixed, unspecified; F41.9 Anxiety disorder, unspecified; F32.A Depression, unspecified; F43.10 Post-traumatic stress disorder, unspecified; H91.91 Unspecified hearing loss, right ear; I10 Essential (primary) hypertension; Z91.011 Allergy to milk products
CPT/HCPCS: 81025; 87811; C9803-CS; U0003; U0005

== ENCOUNTER 2022-08-03 14:16 | Inpatient (IN) | payer OTHER ==
[2022-08-03 16:43] VITALS: BMI 29.2
[2022-08-03] MEDS ORDERED: NALOXONE HCL (KLOXXADO) 8 MG SPRAY NS PRN (19:25)
[2022-08-03] MEDS ORDERED: DICYCLOMINE HCL 10 MG CAPSULE PO PRN (19:25)
[2022-08-03] MEDS ORDERED: LOPERAMIDE HCL 2 MG CAPSULE PO PRN (19:25)
[2022-08-03] MEDS ORDERED: BENZOCAINE/MENTHOL (CHLORASEPTIC ) LOZENGE MM PRN (19:25)
[2022-08-03] MEDS ORDERED: MAGNESIUM CITRATE 300 ML BOTTLE PO PRN (19:25)
[2022-08-03] MEDS ORDERED: NICOTINE 10 MG CARTRIDGE (INHALER) IH PRN (19:25)
[2022-08-03] MEDS ORDERED: ACETAMINOPHEN 325 MG TABLET (FP) PO PRN ×2 (19:25)
[2022-08-03] MEDS ORDERED: methaDONE HCL 10 MG TABLET (FOR DETOX USE ONLY) PO ONE (19:25)
[2022-08-03] MEDS ORDERED: IBUPROFEN 400 MG TABLET (FP) PO PRN (19:25)
[2022-08-03] MEDS ORDERED: BISMUTH SUBSALICYLATE 524 MG/30 ML PO PRN (19:25)
[2022-08-03] MEDS ORDERED: MAG HYDROX/AL HYDROX/SIMETH 30 ML UNIT-DOSE CUP PO PRN (19:25)
[2022-08-03] MEDS ORDERED: MAGNESIUM HYDROX 2400MG/30ML ORAL SUSPENSION 30 ML CUP PO PRN (19:25)
[2022-08-03] MEDS: METHOCARBAMOL 500 MG TABLET PO PRN (20:29)
[2022-08-03] MEDS: MELATONIN 5 MG TABLETS PO SCH (22:02)
[2022-08-03] MEDS: THIAMINE HCL 100 MG TABLET (FP) PO SCH (22:03)
[2022-08-04] MEDS: cloNIDine HCL 0.1 MG TABLET PO PRN ×2 (09:22→17:55)
[2022-08-04] MEDS: PRENATAL VITAMINS W/ FOLIC ACID TABLET (FP) PO SCH (09:22)
[2022-08-04] MEDS: AMOX TR/POT CLAV 875MG/125MG TABLETS (FP) PO SCH ×2 (09:22→17:55)
[2022-08-04] MEDS: NICOTINE 7 MG/24 HOURS TOPICAL PATCH TD SCH (09:44)
[2022-08-04 11:08] LABS: HEMATOCRIT 39.5 % (32.4-45.2); HEMOGLOBIN 12.3 GM/dL (10.7-15.3); MCH 25.4 pg (25.7-33.7); MCHC 31.2 g/dl (32.0-36.0); MEAN CELL VOLUME 81.4 fl (80-96); MEAN PLT VOLUME 9.1 fl (7.5-11.1); PLATELET COUNT 341 10^3/uL (134-434); RBC 4.85 M/mm3 (3.60-5.2); RDW 14.6 % (11.6-15.6); WHITE BLOOD COUNT 4.1 K/mm3 (4.0-10.0)
[2022-08-04 11:28] LABS: ALBUMIN 3.5 g/dl (3.4-5.0); CALCIUM 9.5 mg/dL (8.5-10.1)
[2022-08-04 11:29] LABS: BLOOD UREA NITROGEN 7.6 mg/dL (7-18)
[2022-08-04 11:31] LABS: CREATININE 0.9 mg/dL (0.55-1.3)
[2022-08-04 11:33] LABS: TOT PROT 7.2 g/dl (6.4-8.2)
[2022-08-04] MEDS: METHOCARBAMOL 500 MG TABLET PO PRN (17:56)
[2022-08-04] MEDS: THIAMINE HCL 100 MG TABLET (FP) PO SCH (22:44)
[2022-08-04] MEDS: MELATONIN 5 MG TABLETS PO SCH (22:44)
[2022-08-05] MEDS: cloNIDine HCL 0.1 MG TABLET PO PRN ×4 (01:16→22:37)
[2022-08-05] MEDS: METHOCARBAMOL 500 MG TABLET PO PRN ×3 (01:16→22:37)
[2022-08-05] MEDS: AMOX TR/POT CLAV 875MG/125MG TABLETS (FP) PO SCH ×2 (07:13→18:13)
[2022-08-05] MEDS ORDERED: methaDONE HCL 10 MG TABLET (FOR DETOX USE ONLY) PO ONE (10:00)
[2022-08-05] MEDS: PRENATAL VITAMINS W/ FOLIC ACID TABLET (FP) PO SCH (10:45)
[2022-08-05] MEDS: NICOTINE 7 MG/24 HOURS TOPICAL PATCH TD SCH (10:48)
[2022-08-05] MEDS: MELATONIN 5 MG TABLETS PO SCH (22:37)
[2022-08-05] MEDS: THIAMINE HCL 100 MG TABLET (FP) PO SCH (22:37)
[2022-08-05] MEDS: IBUPROFEN 600 MG TABLET (FP) PO PRN (22:40)
[2022-08-06 06:43] VITALS: BP 155/84; PULSE 52; RESP 17; TEMP 98
[2022-08-06] MEDS: METHOCARBAMOL 500 MG TABLET PO PRN (07:10)
[2022-08-06] MEDS: IBUPROFEN 600 MG TABLET (FP) PO PRN (07:10)
[2022-08-06] MEDS: AMOX TR/POT CLAV 875MG/125MG TABLETS (FP) PO SCH (07:10)
[2022-08-06] MEDS: PRENATAL VITAMINS W/ FOLIC ACID TABLET (FP) PO SCH (09:56)
[2022-08-06] MEDS: NICOTINE 7 MG/24 HOURS TOPICAL PATCH TD SCH (09:58)
[2022-08-07] MEDS ORDERED: methaDONE HCL 10 MG TABLET (FOR DETOX USE ONLY) PO ONE (10:00)
== END 2022-08-06 11:55 | disposition left against medical advice (07) | DRG 770 ==
LOC: SUATTDRO 14:16 → YASAS 14:16 → Y3N 19:12
PROVIDERS: ADMIT Allergy & Immunology; ATTEND Surgery
PROC: HZ2ZZZZ Detoxification Services for Substance Abuse Treatment (ICD-10-PCS; principal; 2022-08-03)
DX: F11.23 Opioid dependence with withdrawal (principal); F10.230 Alcohol dependence with withdrawal, uncomplicated; F14.20 Cocaine dependence, uncomplicated; F12.20 Cannabis dependence, uncomplicated; F17.210 Nicotine dependence, cigarettes, uncomplicated; F41.9 Anxiety disorder, unspecified; F32.A Depression, unspecified; I10 Essential (primary) hypertension; L08.9 Local infection of the skin and subcutaneous tissue, unspecified
CPT/HCPCS: 36415; 80053; 81025; 82962; 85027; 86780; 93005; 93010; C9803-CS; U0003; U0005

== ENCOUNTER 2022-09-23 17:13 | Inpatient (IN) | payer OTHER ==
[2022-09-23 18:24] VITALS: BMI 27.4
[2022-09-23] MEDS ORDERED: POLYETHYLENE GLYCOL (HEALTHYLAX) 3350 17 GM PACKET PO PRN (19:23)
[2022-09-23] MEDS ORDERED: NALOXONE HCL (KLOXXADO) 8 MG SPRAY NS PRN (19:23)
[2022-09-23] MEDS ORDERED: LOPERAMIDE HCL 2 MG CAPSULE PO PRN (19:23)
[2022-09-23] MEDS ORDERED: MAG HYDROX/AL HYDROX/SIMETH 30 ML UNIT-DOSE CUP PO PRN (19:23)
[2022-09-23] MEDS ORDERED: IBUPROFEN 600 MG TABLET (FP) PO PRN (19:23)
[2022-09-23] MEDS ORDERED: DICYCLOMINE HCL 10 MG CAPSULE PO PRN (19:23)
[2022-09-23] MEDS ORDERED: MAGNESIUM HYDROX 2400MG/30ML ORAL SUSPENSION 30 ML CUP PO PRN (19:23)
[2022-09-23] MEDS ORDERED: BISMUTH SUBSALICYLATE 524 MG/30 ML PO PRN (19:23)
[2022-09-23] MEDS ORDERED: NICOTINE 10 MG CARTRIDGE (INHALER) IH PRN (19:23)
[2022-09-23] MEDS ORDERED: BENZOCAINE/MENTHOL (CHLORASEPTIC ) LOZENGE MM PRN (19:23)
[2022-09-23] MEDS ORDERED: ACETAMINOPHEN 325 MG TABLET (FP) PO PRN ×2 (19:23)
[2022-09-23] MEDS ORDERED: IBUPROFEN 400 MG TABLET (FP) PO PRN (19:23)
[2022-09-23] MEDS: MELATONIN 5 MG TABLETS PO SCH (22:13)
[2022-09-23] MEDS: THIAMINE HCL 100 MG TABLET (FP) PO SCH (22:13)
[2022-09-23] MEDS: METHOCARBAMOL 500 MG TABLET PO PRN (22:20)
[2022-09-24] MEDS: METHOCARBAMOL 500 MG TABLET PO PRN ×2 (05:31→16:56)
[2022-09-24] MEDS ORDERED: methaDONE HCL 10 MG TABLET PO SCH (11:15)
[2022-09-24] MEDS: methaDONE 40 MG, methaDONE 30 MG PO SCH (11:33)
[2022-09-24] MEDS: PRENATAL VITAMINS W/ FOLIC ACID TABLET (FP) PO SCH (11:33)
[2022-09-24] MEDS ORDERED: amLODIPine BESYLATE 10 MG TABLET (FP) PO ONE (19:27)
[2022-09-24] MEDS: diazePAM 5 MG TABLET PO PRN (19:39)
[2022-09-24] MEDS: MELATONIN 5 MG TABLETS PO SCH (22:48)
[2022-09-24] MEDS: THIAMINE HCL 100 MG TABLET (FP) PO SCH (22:48)
[2022-09-24] MEDS: diazePAM 5 MG TABLET PO SCH (22:48)
[2022-09-25] MEDS: methaDONE 40 MG, methaDONE 30 MG PO SCH (05:52)
[2022-09-25] MEDS: diazePAM 5 MG TABLET PO SCH ×4 (05:53→22:24)
[2022-09-25] MEDS: LISINOPRIL 10 MG TABLET PO SCH (10:37)
[2022-09-25] MEDS: amLODIPine BESYLATE 10 MG TABLET (FP) PO SCH (10:38)
[2022-09-25] MEDS: PRENATAL VITAMINS W/ FOLIC ACID TABLET (FP) PO SCH (10:38)
[2022-09-25] MEDS: METHOCARBAMOL 500 MG TABLET PO PRN (17:20)
[2022-09-25] MEDS: MELATONIN 5 MG TABLETS PO SCH (22:24)
[2022-09-25] MEDS: THIAMINE HCL 100 MG TABLET (FP) PO SCH (22:24)
[2022-09-26] MEDS: diazePAM 5 MG TABLET PO SCH ×3 (05:56→22:59)
[2022-09-26] MEDS: methaDONE 40 MG, methaDONE 30 MG PO SCH (05:56)
[2022-09-26] MEDS: PRENATAL VITAMINS W/ FOLIC ACID TABLET (FP) PO SCH (10:32)
[2022-09-26] MEDS: LISINOPRIL 10 MG TABLET PO SCH (10:32)
[2022-09-26] MEDS: amLODIPine BESYLATE 10 MG TABLET (FP) PO SCH (10:33)
[2022-09-26] MEDS: METHOCARBAMOL 500 MG TABLET PO PRN ×2 (10:34→22:59)
[2022-09-26 14:50] LABS: HEMATOCRIT 39.1 % (32.4-45.2); HEMOGLOBIN 12.4 GM/dL (10.7-15.3); MCHC 31.6 g/dl (32.0-36.0); MEAN CELL VOLUME 82.2 fl (80-96); MEAN PLT VOLUME 8.5 fl (7.5-11.1); PLATELET COUNT 236 10^3/uL (134-434); RBC 4.76 M/mm3 (3.60-5.2); RDW 14.7 % (11.6-15.6); WHITE BLOOD COUNT 3.9 K/mm3 (4.0-10.0)
[2022-09-26 15:48] LABS: CALCIUM 8.9 mg/dL (8.5-10.1)
[2022-09-26 15:53] LABS: BILIRUBIN,TOTAL 0.4 mg/dL (0.2-1); CREATININE 0.8 mg/dL (0.55-1.3)
[2022-09-26] MEDS: THIAMINE HCL 100 MG TABLET (FP) PO SCH (22:58)
[2022-09-26] MEDS: MELATONIN 5 MG TABLETS PO SCH (22:58)
[2022-09-27] MEDS: methaDONE 40 MG, methaDONE 30 MG PO SCH (05:52)
[2022-09-27] MEDS: diazePAM 5 MG TABLET PO SCH ×2 (05:53→18:26)
[2022-09-27] MEDS: PRENATAL VITAMINS W/ FOLIC ACID TABLET (FP) PO SCH (10:30)
[2022-09-27] MEDS: diazePAM 5 MG TABLET PO PRN (10:30)
[2022-09-27] MEDS: LISINOPRIL 10 MG TABLET PO SCH (10:30)
[2022-09-27] MEDS: amLODIPine BESYLATE 10 MG TABLET (FP) PO SCH (10:30)
[2022-09-27] MEDS: METHOCARBAMOL 500 MG TABLET PO PRN ×2 (18:26→23:13)
[2022-09-27] MEDS: MELATONIN 5 MG TABLETS PO SCH (23:13)
[2022-09-27] MEDS: THIAMINE HCL 100 MG TABLET (FP) PO SCH (23:14)
[2022-09-28] MEDS: methaDONE 40 MG, methaDONE 30 MG PO SCH (05:28)
[2022-09-28] MEDS ORDERED: diazePAM 5 MG TABLET PO ONE (06:00)
[2022-09-28 06:52] VITALS: BP 104/60; PULSE 88; RESP 18; TEMP 97.7
== END 2022-09-28 08:56 | disposition home or self-care (01) | DRG 773 ==
LOC: YASAS 17:13 → Y6N 19:45 → UNDOADMIN 19:45 → Y6N 09-24 12:14
PROVIDERS: ADMIT Allergy & Immunology; ATTEND Surgery
PROC: HZ2ZZZZ Detoxification Services for Substance Abuse Treatment (ICD-10-PCS; principal; 2022-09-23)
DX: F11.23 Opioid dependence with withdrawal (principal); F10.230 Alcohol dependence with withdrawal, uncomplicated; F14.20 Cocaine dependence, uncomplicated; F12.20 Cannabis dependence, uncomplicated; F17.210 Nicotine dependence, cigarettes, uncomplicated; F31.81 Bipolar II disorder; F41.9 Anxiety disorder, unspecified; I10 Essential (primary) hypertension; K70.30 Alcoholic cirrhosis of liver without ascites; R73.9 Hyperglycemia, unspecified; R82.90 Unspecified abnormal findings in urine; Z87.42 Personal history of other diseases of the female genital tract; Z91.011 Allergy to milk products
CPT/HCPCS: 36415; 80053; 81025; 85027; 86780; 87811; C9803-CS; U0003; U0005

== ENCOUNTER 2022-12-17 10:26 | Inpatient (IN) | payer OTHER ==
[2022-12-17 11:22] VITALS: BMI 26.7
[2022-12-17] MEDS ORDERED: ONDANSETRON *ODT* 4 MG TABLET SL PRN (12:23)
[2022-12-17] MEDS ORDERED: NICOTINE 10 MG CARTRIDGE (INHALER) IH PRN (12:23)
[2022-12-17] MEDS ORDERED: diazePAM 5 MG TABLET PO ONE (12:23)
[2022-12-17] MEDS ORDERED: MAGNESIUM HYDROX 2400MG/30ML ORAL SUSPENSION 30 ML CUP PO PRN (12:23)
[2022-12-17] MEDS ORDERED: LOPERAMIDE HCL 2 MG CAPSULE PO PRN (12:23)
[2022-12-17] MEDS ORDERED: IBUPROFEN 600 MG TABLET (FP) PO PRN (12:23)
[2022-12-17] MEDS ORDERED: MAG HYDROX/AL HYDROX/SIMETH 30 ML UNIT-DOSE CUP PO PRN (12:23)
[2022-12-17] MEDS ORDERED: DICYCLOMINE HCL 10 MG CAPSULE PO PRN (12:23)
[2022-12-17] MEDS ORDERED: NALOXONE HCL (KLOXXADO) 8 MG SPRAY NS PRN (12:23)
[2022-12-17] MEDS ORDERED: POLYETHYLENE GLYCOL (HEALTHYLAX) 3350 17 GM PACKET PO PRN (12:23)
[2022-12-17] MEDS ORDERED: IBUPROFEN 400 MG TABLET (FP) PO PRN (12:23)
[2022-12-17] MEDS ORDERED: ACETAMINOPHEN 325 MG TABLET (FP) PO PRN ×2 (12:23)
[2022-12-17] MEDS ORDERED: BISMUTH SUBSALICYLATE 524 MG/30 ML PO PRN (12:23)
[2022-12-17] MEDS ORDERED: BENZOCAINE/MENTHOL (CHLORASEPTIC ) LOZENGE MM PRN (12:23)
[2022-12-17] MEDS ORDERED: diazePAM 5 MG TABLET ONE (13:30)
[2022-12-17] MEDS: diazePAM 5 MG TABLET PO SCH ×2 (17:33→22:54)
[2022-12-17] MEDS: METHOCARBAMOL 500 MG TABLET PO PRN (21:20)
[2022-12-17] MEDS: TOLNAFTATE 1% CREAM 15 GM TUBE TP SCH (22:53)
[2022-12-17] MEDS: MELATONIN 5 MG TABLETS PO SCH (22:53)
[2022-12-17] MEDS: THIAMINE HCL 100 MG TABLET (FP) PO SCH (22:53)
[2022-12-18] MEDS ORDERED: methaDONE HCL 40 MG DISPERSABLE TABLET PO ONE (06:00)
[2022-12-18] MEDS: diazePAM 5 MG TABLET PO SCH ×4 (06:12→23:47)
[2022-12-18] MEDS: PRENATAL VITAMINS W/ FOLIC ACID TABLET (FP) PO SCH (10:38)
[2022-12-18] MEDS: TOLNAFTATE 1% CREAM 15 GM TUBE TP SCH ×2 (10:38→21:36)
[2022-12-18] MEDS: MELATONIN 5 MG TABLETS PO SCH (21:13)
[2022-12-18] MEDS: THIAMINE HCL 100 MG TABLET (FP) PO SCH (21:13)
[2022-12-18] MEDS: diazePAM 5 MG TABLET PO PRN (21:14)
[2022-12-18] MEDS: METHOCARBAMOL 500 MG TABLET PO PRN (21:14)
[2022-12-19] MEDS: diazePAM 5 MG TABLET PO SCH ×3 (06:23→22:06)
[2022-12-19] MEDS: methaDONE HCL 40 MG DISPERSABLE TABLET PO SCH (09:59)
[2022-12-19] MEDS: amLODIPine BESYLATE 10 MG TABLET (FP) PO SCH (09:59)
[2022-12-19] MEDS: LISINOPRIL 10 MG TABLET PO SCH (09:59)
[2022-12-19] MEDS: TOLNAFTATE 1% CREAM 15 GM TUBE TP SCH ×2 (10:00→22:43)
[2022-12-19] MEDS: PRENATAL VITAMINS W/ FOLIC ACID TABLET (FP) PO SCH (10:00)
[2022-12-19] MEDS: diazePAM 5 MG TABLET PO PRN (10:00)
[2022-12-19 12:28] LABS: HEMATOCRIT 36.8 % (32.4-45.2); HEMOGLOBIN 12.3 GM/dL (10.7-15.3); MCHC 33.4 g/dl (32.0-36.0); MEAN PLT VOLUME 8.2 fl (7.5-11.1); PLATELET COUNT 208 10^3/uL (134-434); RBC 4.38 M/mm3 (3.60-5.2); RDW 15.2 % (11.6-15.6); WHITE BLOOD COUNT 3.5 K/mm3 (4.0-10.0)
[2022-12-19 12:45] LABS: CALCIUM 9.1 mg/dL (8.5-10.1)
[2022-12-19 12:46] LABS: ALBUMIN 3.2 g/dl (3.4-5.0); BLOOD UREA NITROGEN 11.8 mg/dL (7-18)
[2022-12-19 12:49] LABS: CREATININE 0.8 mg/dL (0.55-1.3)
[2022-12-19 12:50] LABS: BILIRUBIN,TOTAL 0.2 mg/dL (0.2-1); TOT PROT 6.2 g/dl (6.4-8.2)
[2022-12-19 22:03] VITALS: RESP 18
[2022-12-19] MEDS: MELATONIN 5 MG TABLETS PO SCH (22:07)
[2022-12-19] MEDS: THIAMINE HCL 100 MG TABLET (FP) PO SCH (22:09)
[2022-12-20] MEDS: diazePAM 5 MG TABLET PO SCH ×2 (06:11→17:18)
[2022-12-20] MEDS: methaDONE HCL 40 MG DISPERSABLE TABLET PO SCH (06:11)
[2022-12-20] MEDS: TOLNAFTATE 1% CREAM 15 GM TUBE TP SCH ×2 (09:30→22:29)
[2022-12-20] MEDS: amLODIPine BESYLATE 10 MG TABLET (FP) PO SCH (09:31)
[2022-12-20] MEDS: PRENATAL VITAMINS W/ FOLIC ACID TABLET (FP) PO SCH (09:31)
[2022-12-20] MEDS: METHOCARBAMOL 500 MG TABLET PO PRN ×2 (09:31→22:29)
[2022-12-20] MEDS: LISINOPRIL 10 MG TABLET PO SCH (09:31)
[2022-12-20] MEDS: diazePAM 5 MG TABLET PO PRN (09:31)
[2022-12-20] MEDS ORDERED: COLLOIDAL OATMEAL 1 BAR EACH TP PRN (10:08)
[2022-12-20] MEDS: MELATONIN 5 MG TABLETS PO SCH (22:28)
[2022-12-20] MEDS: THIAMINE HCL 100 MG TABLET (FP) PO SCH (22:29)
[2022-12-21 05:31] VITALS: BP 138/84; PULSE 73; TEMP 97.6
[2022-12-21] MEDS: methaDONE HCL 40 MG DISPERSABLE TABLET PO SCH (05:41)
[2022-12-21] MEDS ORDERED: diazePAM 5 MG TABLET PO ONE (06:00)
[2022-12-21] MEDS: LISINOPRIL 10 MG TABLET PO SCH (09:14)
[2022-12-21] MEDS: PRENATAL VITAMINS W/ FOLIC ACID TABLET (FP) PO SCH (09:14)
[2022-12-21] MEDS: amLODIPine BESYLATE 10 MG TABLET (FP) PO SCH (09:14)
[2022-12-21] MEDS: TOLNAFTATE 1% CREAM 15 GM TUBE TP SCH (09:14)
== END 2022-12-21 09:11 | disposition home or self-care (01) | DRG 773 ==
LOC: YASAS 10:26 → Y3N 12:03
PROVIDERS: ADMIT Allergy & Immunology; ATTEND Surgery
PROC: HZ2ZZZZ Detoxification Services for Substance Abuse Treatment (ICD-10-PCS; principal; 2022-12-17)
DX: F10.230 Alcohol dependence with withdrawal, uncomplicated (principal); F11.20 Opioid dependence, uncomplicated; F14.20 Cocaine dependence, uncomplicated; F31.9 Bipolar disorder, unspecified; F19.24 Other psychoactive substance dependence with psychoactive substance-induced mood disorder; F41.9 Anxiety disorder, unspecified; I10 Essential (primary) hypertension; L85.3 Xerosis cutis; B35.3 Tinea pedis; Z86.19 Personal history of other infectious and parasitic diseases; Z91.011 Allergy to milk products; Z91.014 Allergy to mammalian meats
CPT/HCPCS: 36415; 80053; 85027; 86780; 87811; 93005; 93010; C9803-CS; U0003; U0005

== ENCOUNTER 2023-01-11 13:31 | Inpatient (IN) | payer OTHER ==
[2023-01-11 14:34] VITALS: BMI 26.4
[2023-01-11] MEDS ORDERED: MAG HYDROX/AL HYDROX/SIMETH 30 ML UNIT-DOSE CUP PO PRN (15:29)
[2023-01-11] MEDS ORDERED: LOPERAMIDE HCL 2 MG CAPSULE PO PRN (15:29)
[2023-01-11] MEDS ORDERED: DICYCLOMINE HCL 10 MG CAPSULE PO PRN (15:29)
[2023-01-11] MEDS ORDERED: NICOTINE 14 MG/24 HOURS TOPICAL PATCH TD PRN (15:29)
[2023-01-11] MEDS ORDERED: NICOTINE 10 MG CARTRIDGE (INHALER) IH PRN (15:29)
[2023-01-11] MEDS ORDERED: POLYETHYLENE GLYCOL (HEALTHYLAX) 3350 17 GM PACKET PO PRN (15:29)
[2023-01-11] MEDS ORDERED: NALOXONE HCL (KLOXXADO) 8 MG SPRAY NS PRN (15:29)
[2023-01-11] MEDS ORDERED: MAGNESIUM HYDROX 2400MG/30ML ORAL SUSPENSION 30 ML CUP PO PRN (15:29)
[2023-01-11] MEDS ORDERED: ONDANSETRON *ODT* 4 MG TABLET SL PRN (15:29)
[2023-01-11] MEDS ORDERED: IBUPROFEN 600 MG TABLET (FP) PO PRN (15:29)
[2023-01-11] MEDS ORDERED: BISMUTH SUBSALICYLATE 262 MG/15 ML BTL PO PRN (15:29)
[2023-01-11] MEDS ORDERED: ACETAMINOPHEN 325 MG TABLET (FP) PO PRN ×2 (15:29)
[2023-01-11] MEDS ORDERED: IBUPROFEN 400 MG TABLET (FP) PO PRN (15:29)
[2023-01-11] MEDS ORDERED: NICOTINE POLACRILEX 2 MG GUM BUC PRN (15:29)
[2023-01-11] MEDS ORDERED: BENZOCAINE/MENTHOL (CHLORASEPTIC ) LOZENGE MM PRN (15:29)
[2023-01-11] MEDS: hydrOXYzine PAMOATE 25 MG CAPSULE (FP) PO PRN (17:16)
[2023-01-11] MEDS: diazePAM 5 MG TABLET PO PRN (17:17)
[2023-01-11] MEDS: MELATONIN 5 MG TABLETS PO SCH (22:13)
[2023-01-11] MEDS: THIAMINE HCL 100 MG TABLET (FP) PO SCH (22:13)
[2023-01-11] MEDS: diazePAM 5 MG TABLET PO SCH (22:14)
[2023-01-12] MEDS: diazePAM 5 MG TABLET PO SCH ×4 (05:52→22:52)
[2023-01-12] MEDS ORDERED: COLLOIDAL OATMEAL 1 BAR EACH TP PRN (09:09)
[2023-01-12] MEDS: methaDONE HCL 40 MG DISPERSABLE TABLET PO SCH (09:29)
[2023-01-12] MEDS: PRENATAL VITAMINS W/ FOLIC ACID TABLET (FP) PO SCH (10:14)
[2023-01-12 11:30] LABS: BLOOD UREA NITROGEN 15.5 mg/dL (7-18)
[2023-01-12 11:31] LABS: ALBUMIN 3.1 g/dl (3.4-5.0); CALCIUM 9.1 mg/dL (8.5-10.1)
[2023-01-12 11:33] LABS: CREATININE 0.9 mg/dL (0.55-1.3)
[2023-01-12 11:35] LABS: BILIRUBIN,TOTAL 0.4 mg/dL (0.2-1)
[2023-01-12 11:38] LABS: HEMATOCRIT 36.5 % (32.4-45.2); HEMOGLOBIN 11.8 GM/dL (10.7-15.3); MCH 27.2 pg (25.7-33.7); MCHC 32.3 g/dl (32.0-36.0); MEAN CELL VOLUME 84.2 fl (80-96); MEAN PLT VOLUME 8.5 fl (7.5-11.1); PLATELET COUNT 264 10^3/uL (134-434); RBC 4.33 M/mm3 (3.60-5.2); RDW 14.1 % (11.6-15.6); WHITE BLOOD COUNT 4.2 K/mm3 (4.0-10.0)
[2023-01-12] MEDS: METHOCARBAMOL 500 MG TABLET PO PRN ×2 (17:45→22:52)
[2023-01-12] MEDS: MELATONIN 5 MG TABLETS PO SCH (22:51)
[2023-01-12] MEDS: THIAMINE HCL 100 MG TABLET (FP) PO SCH (22:51)
[2023-01-13] MEDS: methaDONE HCL 40 MG DISPERSABLE TABLET PO SCH (06:00)
[2023-01-13] MEDS: diazePAM 5 MG TABLET PO SCH ×3 (06:14→22:39)
[2023-01-13] MEDS: PRENATAL VITAMINS W/ FOLIC ACID TABLET (FP) PO SCH (10:23)
[2023-01-13] MEDS: diazePAM 5 MG TABLET PO PRN (10:25)
[2023-01-13] MEDS: METHOCARBAMOL 500 MG TABLET PO PRN ×2 (10:25→22:40)
[2023-01-13 12:40] LABS: HIV INTERPRETATION NEGATIVE (NEGATIVE)
[2023-01-13] MEDS: MELATONIN 5 MG TABLETS PO SCH (22:38)
[2023-01-13] MEDS: THIAMINE HCL 100 MG TABLET (FP) PO SCH (22:38)
[2023-01-14] MEDS: methaDONE HCL 40 MG DISPERSABLE TABLET PO SCH (05:25)
[2023-01-14] MEDS: diazePAM 5 MG TABLET PO SCH ×2 (05:26→17:53)
[2023-01-14 09:21] VITALS: RESP 18
[2023-01-14] MEDS: PRENATAL VITAMINS W/ FOLIC ACID TABLET (FP) PO SCH (10:19)
[2023-01-14] MEDS: hydrOXYzine PAMOATE 25 MG CAPSULE (FP) PO PRN ×2 (10:20→17:56)
[2023-01-14] MEDS: METHOCARBAMOL 500 MG TABLET PO PRN (17:58)
[2023-01-14] MEDS: THIAMINE HCL 100 MG TABLET (FP) PO SCH (22:42)
[2023-01-14] MEDS: MELATONIN 5 MG TABLETS PO SCH (22:42)
[2023-01-15] MEDS: methaDONE HCL 40 MG DISPERSABLE TABLET PO SCH (05:59)
[2023-01-15] MEDS ORDERED: diazePAM 5 MG TABLET PO ONE (06:00)
[2023-01-15 06:40] VITALS: PULSE 66
[2023-01-15 09:43] VITALS: BP 147/100; TEMP 98.1
[2023-01-15] MEDS: PRENATAL VITAMINS W/ FOLIC ACID TABLET (FP) PO SCH (10:13)
== END 2023-01-15 09:54 | disposition home or self-care (01) | DRG 773 ==
LOC: YASAS 13:31 → Y6N 15:26
PROVIDERS: ADMIT Allergy & Immunology; ATTEND Surgery
PROC: HZ2ZZZZ Detoxification Services for Substance Abuse Treatment (ICD-10-PCS; principal; 2023-01-11)
DX: F10.230 Alcohol dependence with withdrawal, uncomplicated (principal); F11.20 Opioid dependence, uncomplicated; F14.20 Cocaine dependence, uncomplicated; F12.20 Cannabis dependence, uncomplicated; F17.210 Nicotine dependence, cigarettes, uncomplicated; F41.9 Anxiety disorder, unspecified; F32.A Depression, unspecified; I10 Essential (primary) hypertension; M19.041 Primary osteoarthritis, right hand; M19.042 Primary osteoarthritis, left hand; Z86.19 Personal history of other infectious and parasitic diseases; Z91.011 Allergy to milk products
CPT/HCPCS: 36415; 80053; 81025; 85027; 86780; 87389; 87811; C9803-CS; U0003; U0005

== ENCOUNTER 2023-02-17 12:07 | Inpatient (IN) | payer OTHER ==
[2023-02-17 12:22] VITALS: BMI 30.9
[2023-02-17] MEDS ORDERED: P-EPHED 60MG/TRIPROLIDI 2.5MG TABLET PO PRN (12:42)
[2023-02-17] MEDS ORDERED: NICOTINE POLACRILEX 2 MG GUM BUC PRN (12:42)
[2023-02-17] MEDS ORDERED: LOPERAMIDE HCL 2 MG CAPSULE PO PRN (12:42)
[2023-02-17] MEDS ORDERED: BENZOCAINE/MENTHOL (CHLORASEPTIC ) LOZENGE MM PRN (12:42)
[2023-02-17] MEDS ORDERED: NICOTINE 10 MG CARTRIDGE (INHALER) IH PRN (12:42)
[2023-02-17] MEDS ORDERED: NALOXONE HCL (KLOXXADO) 8 MG SPRAY NS PRN (12:42)
[2023-02-17] MEDS ORDERED: ACETAMINOPHEN 325 MG TABLET (FP) PO PRN (12:42)
[2023-02-17] MEDS ORDERED: BISMUTH SUBSALICYLATE 524 MG/30 ML PO PRN (12:42)
[2023-02-17] MEDS ORDERED: POLYETHYLENE GLYCOL (HEALTHYLAX) 3350 17 GM PACKET PO PRN (12:42)
[2023-02-17] MEDS ORDERED: guaiFENesin 600 MG TABLET.ER (FP) PO PRN (12:42)
[2023-02-17] MEDS ORDERED: MAGNESIUM HYDROX 2400MG/30ML ORAL SUSPENSION 30 ML CUP PO PRN (12:42)
[2023-02-17] MEDS ORDERED: NALOXONE HCL 0.4 MG/ML VIAL IM PRN (12:42)
[2023-02-17] MEDS ORDERED: MAG HYDROX/AL HYDROX/SIMETH 30 ML UNIT-DOSE CUP PO PRN (12:42)
[2023-02-17] MEDS ORDERED: DICYCLOMINE HCL 10 MG CAPSULE PO PRN (12:42)
[2023-02-17] MEDS ORDERED: IBUPROFEN 400 MG TABLET (FP) PO PRN (12:42)
[2023-02-17] MEDS ORDERED: ONDANSETRON *ODT* 4 MG TABLET SL PRN (12:42)
[2023-02-17] MEDS ORDERED: BENZONATATE 200 MG CAPSULE PO PRN (12:42)
[2023-02-17] MEDS: NICOTINE 7 MG/24 HOURS TOPICAL PATCH TD SCH (14:48)
[2023-02-17] MEDS: diazePAM 5 MG TABLET PO PRN ×2 (17:07→22:45)
[2023-02-17] MEDS: THIAMINE HCL 100 MG TABLET (FP) PO SCH (22:45)
[2023-02-17] MEDS: MELATONIN 5 MG TABLETS PO PRN (22:45)
[2023-02-17] MEDS: hydrOXYzine PAMOATE 25 MG CAPSULE (FP) PO PRN (22:46)
[2023-02-17] MEDS: IBUPROFEN 600 MG TABLET (FP) PO PRN (22:46)
[2023-02-18] MEDS: diazePAM 5 MG TABLET PO PRN ×3 (08:19→17:55)
[2023-02-18] MEDS ORDERED: methaDONE HCL 40 MG DISPERSABLE TABLET PO SCH (10:15)
[2023-02-18] MEDS: methaDONE 80 MG, methaDONE 10 MG PO SCH (10:54)
[2023-02-18] MEDS: hydrOXYzine PAMOATE 25 MG CAPSULE (FP) PO PRN ×2 (10:54→22:07)
[2023-02-18] MEDS: PRENATAL VITAMINS W/ FOLIC ACID TABLET (FP) PO SCH (10:54)
[2023-02-18] MEDS: NICOTINE 7 MG/24 HOURS TOPICAL PATCH TD SCH (10:57)
[2023-02-18] MEDS: THIAMINE HCL 100 MG TABLET (FP) PO SCH (22:06)
[2023-02-18] MEDS: MELATONIN 5 MG TABLETS PO PRN (22:06)
[2023-02-18] MEDS: OLANZapine 10 MG TABLET PO SCH (22:06)
[2023-02-18] MEDS ORDERED: chlordiazePOXIDE HCL 25 MG CAPSULE PO PRN (23:18)
[2023-02-18] MEDS ORDERED: cloNIDine HCL 0.1 MG TABLET PO ONE (23:18)
[2023-02-18] MEDS: chlordiazePOXIDE HCL 25 MG CAPSULE PO SCH (23:34)
[2023-02-19] MEDS: methaDONE 80 MG, methaDONE 10 MG PO SCH (05:57)
[2023-02-19] MEDS: chlordiazePOXIDE HCL 25 MG CAPSULE PO SCH ×3 (06:00→17:31)
[2023-02-19] MEDS: PRENATAL VITAMINS W/ FOLIC ACID TABLET (FP) PO SCH (10:20)
[2023-02-19] MEDS: NICOTINE 7 MG/24 HOURS TOPICAL PATCH TD SCH (10:21)
[2023-02-19] MEDS: OLANZapine 10 MG TABLET PO SCH (22:13)
[2023-02-19] MEDS: THIAMINE HCL 100 MG TABLET (FP) PO SCH (22:13)
[2023-02-19] MEDS: MELATONIN 5 MG TABLETS PO PRN (22:14)
[2023-02-19] MEDS: chlordiazePOXIDE HCL 10 MG CAPSULE PO SCH (22:14)
[2023-02-20] MEDS: methaDONE 80 MG, methaDONE 10 MG PO SCH (05:32)
[2023-02-20] MEDS: chlordiazePOXIDE HCL 10 MG CAPSULE PO SCH ×3 (05:33→17:06)
[2023-02-20] MEDS: NICOTINE 7 MG/24 HOURS TOPICAL PATCH TD SCH (10:38)
[2023-02-20] MEDS: PRENATAL VITAMINS W/ FOLIC ACID TABLET (FP) PO SCH (10:38)
[2023-02-20] MEDS: IBUPROFEN 600 MG TABLET (FP) PO PRN (17:07)
[2023-02-20] MEDS ORDERED: cloNIDine HCL 0.1 MG TABLET PO ONE (21:35)
[2023-02-20] MEDS: OLANZapine 10 MG TABLET PO SCH (21:57)
[2023-02-20] MEDS: hydrOXYzine PAMOATE 25 MG CAPSULE (FP) PO PRN (21:57)
[2023-02-20] MEDS: THIAMINE HCL 100 MG TABLET (FP) PO SCH (21:57)
[2023-02-21] MEDS: methaDONE 80 MG, methaDONE 10 MG PO SCH (05:59)
[2023-02-21] MEDS: chlordiazePOXIDE HCL 10 MG CAPSULE PO SCH ×2 (06:00→17:49)
[2023-02-21] MEDS: NICOTINE 7 MG/24 HOURS TOPICAL PATCH TD SCH (10:37)
[2023-02-21] MEDS: PRENATAL VITAMINS W/ FOLIC ACID TABLET (FP) PO SCH (10:37)
[2023-02-21] MEDS: chlordiazePOXIDE HCL 10 MG CAPSULE PO PRN ×2 (19:44→23:54)
[2023-02-21] MEDS: MELATONIN 5 MG TABLETS PO PRN (22:09)
[2023-02-21] MEDS: THIAMINE HCL 100 MG TABLET (FP) PO SCH (22:09)
[2023-02-21] MEDS: OLANZapine 10 MG TABLET PO SCH (22:09)
[2023-02-21] MEDS: IBUPROFEN 600 MG TABLET (FP) PO PRN (22:10)
[2023-02-21] MEDS: hydrOXYzine PAMOATE 25 MG CAPSULE (FP) PO PRN (22:11)
[2023-02-22] MEDS ORDERED: chlordiazePOXIDE HCL 10 MG CAPSULE PO ONE (05:00)
[2023-02-22] MEDS: methaDONE 80 MG, methaDONE 10 MG PO SCH (05:36)
[2023-02-22] MEDS: hydrOXYzine PAMOATE 25 MG CAPSULE (FP) PO PRN (05:41)
[2023-02-22] MEDS ORDERED: cloNIDine HCL 0.1 MG TABLET PO ONE (07:09)
[2023-02-22] MEDS: NICOTINE 7 MG/24 HOURS TOPICAL PATCH TD SCH (09:36)
[2023-02-22] MEDS: PRENATAL VITAMINS W/ FOLIC ACID TABLET (FP) PO SCH (09:36)
[2023-02-22 09:53] VITALS: BP 149/90; PULSE 87; RESP 20; TEMP 99.1
== END 2023-02-22 13:02 | disposition other institution (70) | DRG 773 ==
LOC: YASAS 12:07 → Y3N 14:50
PROVIDERS: ADMIT Allergy & Immunology; ATTEND Surgery
PROC: HZ2ZZZZ Detoxification Services for Substance Abuse Treatment (ICD-10-PCS; principal; 2023-02-17)
DX: F10.230 Alcohol dependence with withdrawal, uncomplicated (principal); F11.20 Opioid dependence, uncomplicated; F14.20 Cocaine dependence, uncomplicated; F17.210 Nicotine dependence, cigarettes, uncomplicated; I10 Essential (primary) hypertension; Z86.19 Personal history of other infectious and parasitic diseases; Z86.59 Personal history of other mental and behavioral disorders
CPT/HCPCS: 81025; 87811; C9803-CS; U0003; U0005

== ENCOUNTER 2023-03-14 10:34 | Inpatient (IN) | payer OTHER ==
[2023-03-14 10:57] VITALS: BMI 30.7
[2023-03-14] MEDS ORDERED: NICOTINE 10 MG CARTRIDGE (INHALER) IH PRN (11:34)
[2023-03-14] MEDS ORDERED: BENZOCAINE/MENTHOL (CHLORASEPTIC ) LOZENGE MM PRN (11:34)
[2023-03-14] MEDS ORDERED: MAG HYDROX/AL HYDROX/SIMETH 30 ML UNIT-DOSE CUP PO PRN (11:34)
[2023-03-14] MEDS ORDERED: POLYETHYLENE GLYCOL (HEALTHYLAX) 3350 17 GM PACKET PO PRN (11:34)
[2023-03-14] MEDS ORDERED: COLLOIDAL OATMEAL 1 BAR EACH TP PRN (11:34)
[2023-03-14] MEDS ORDERED: BISMUTH SUBSALICYLATE 524 MG/30 ML PO PRN (11:34)
[2023-03-14] MEDS ORDERED: ONDANSETRON *ODT* 4 MG TABLET SL PRN (11:34)
[2023-03-14] MEDS ORDERED: ACETAMINOPHEN 325 MG TABLET (FP) PO PRN (11:34)
[2023-03-14] MEDS ORDERED: DICYCLOMINE HCL 10 MG CAPSULE PO PRN (11:34)
[2023-03-14] MEDS ORDERED: NALOXONE HCL (KLOXXADO) 8 MG SPRAY NS PRN (11:34)
[2023-03-14] MEDS ORDERED: LOPERAMIDE HCL 2 MG CAPSULE PO PRN (11:34)
[2023-03-14] MEDS ORDERED: MAGNESIUM HYDROX 2400MG/30ML ORAL SUSPENSION 30 ML CUP PO PRN (11:34)
[2023-03-14] MEDS ORDERED: AMMONIUM LACTATE 12% LOTION 225 GM BOTTLE TP PRN (11:34)
[2023-03-14] MEDS ORDERED: BENZONATATE 200 MG CAPSULE PO PRN (11:34)
[2023-03-14] MEDS ORDERED: IBUPROFEN 400 MG TABLET (FP) PO PRN (11:34)
[2023-03-14] MEDS ORDERED: IBUPROFEN 600 MG TABLET (FP) PO PRN (11:34)
[2023-03-14] MEDS ORDERED: guaiFENesin 600 MG TABLET.ER (FP) PO PRN (11:34)
[2023-03-14] MEDS ORDERED: NALOXONE HCL 0.4 MG/ML VIAL IM PRN (11:34)
[2023-03-14] MEDS ORDERED: cloNIDine HCL 0.1 MG TABLET PO ONE (12:00)
[2023-03-14] MEDS ORDERED: NICOTINE 21 MG/24 HOURS TOPICAL PATCH ONE (12:14)
[2023-03-14] MEDS: NICOTINE 21 MG/24 HOURS TOPICAL PATCH TD SCH (12:18)
[2023-03-14] MEDS: METHOCARBAMOL 500 MG TABLET PO PRN (15:58)
[2023-03-14] MEDS: hydrOXYzine PAMOATE 25 MG CAPSULE (FP) PO PRN (15:58)
[2023-03-14] MEDS ORDERED: chlordiazePOXIDE HCL 25 MG CAPSULE PO PRN (17:40)
[2023-03-14] MEDS: chlordiazePOXIDE HCL 25 MG CAPSULE PO SCH ×2 (17:58→22:06)
[2023-03-14 18:56] LABS: HEMATOCRIT 40.4 % (32.4-45.2); HEMOGLOBIN 13.3 GM/dL (10.7-15.3); MCH 27.4 pg (25.7-33.7); MEAN CELL VOLUME 83.1 fl (80-96); PLATELET COUNT 297 10^3/uL (134-434); RBC 4.86 M/mm3 (3.60-5.2); RDW 14.6 % (11.6-15.6); WHITE BLOOD COUNT 4.3 K/mm3 (4.0-10.0)
[2023-03-14 19:47] LABS: POTASSIUM 3.8 mmol/L (3.5-5.1)
[2023-03-14 19:54] LABS: CALCIUM 9.6 mg/dL (8.5-10.1)
[2023-03-14 19:55] LABS: ALBUMIN 4.1 g/dl (3.4-5.0); BLOOD UREA NITROGEN 7.5 mg/dL (7-18)
[2023-03-14 19:56] LABS: CREATININE 0.8 mg/dL (0.55-1.3)
[2023-03-14 19:58] LABS: BILIRUBIN,TOTAL 0.8 mg/dL (0.2-1); TOT PROT 7.8 g/dl (6.4-8.2)
[2023-03-14] MEDS: MELATONIN 5 MG TABLETS PO SCH (22:05)
[2023-03-14] MEDS: THIAMINE HCL 100 MG TABLET (FP) PO SCH (22:06)
[2023-03-15] MEDS: chlordiazePOXIDE HCL 25 MG CAPSULE PO SCH ×4 (05:22→22:07)
[2023-03-15] MEDS ORDERED: methaDONE HCL 10 MG TABLET PO SCH (09:00)
[2023-03-15] MEDS ORDERED: methaDONE 80 MG, methaDONE 20 MG PO ONE (09:30)
[2023-03-15] MEDS: PRENATAL VITAMINS W/ FOLIC ACID TABLET (FP) PO SCH (09:31)
[2023-03-15] MEDS: amLODIPine BESYLATE 5 MG TABLET (FP) PO SCH (09:31)
[2023-03-15] MEDS: NICOTINE 21 MG/24 HOURS TOPICAL PATCH TD SCH (09:37)
[2023-03-15] MEDS: THIAMINE HCL 100 MG TABLET (FP) PO SCH (22:04)
[2023-03-15] MEDS: MELATONIN 5 MG TABLETS PO SCH (22:04)
[2023-03-15] MEDS: OLANZapine 10 MG TABLET PO SCH (22:04)
[2023-03-16] MEDS: chlordiazePOXIDE HCL 25 MG CAPSULE PO SCH ×4 (05:30→22:32)
[2023-03-16] MEDS: methaDONE 80 MG, methaDONE 20 MG PO SCH (05:31)
[2023-03-16] MEDS: PRENATAL VITAMINS W/ FOLIC ACID TABLET (FP) PO SCH (10:31)
[2023-03-16] MEDS: METHOCARBAMOL 500 MG TABLET PO PRN ×2 (10:32→17:20)
[2023-03-16] MEDS: amLODIPine BESYLATE 5 MG TABLET (FP) PO SCH (10:32)
[2023-03-16] MEDS: NICOTINE 21 MG/24 HOURS TOPICAL PATCH TD SCH (10:32)
[2023-03-16] MEDS: THIAMINE HCL 100 MG TABLET (FP) PO SCH (22:32)
[2023-03-16] MEDS: MELATONIN 5 MG TABLETS PO SCH (22:32)
[2023-03-16] MEDS: OLANZapine 10 MG TABLET PO SCH (22:32)
[2023-03-17] MEDS ORDERED: chlordiazePOXIDE HCL 10 MG CAPSULE PO PRN
[2023-03-17] MEDS: chlordiazePOXIDE HCL 10 MG CAPSULE PO SCH ×4 (05:34→22:27)
[2023-03-17] MEDS: methaDONE 80 MG, methaDONE 20 MG PO SCH (05:34)
[2023-03-17] MEDS: PRENATAL VITAMINS W/ FOLIC ACID TABLET (FP) PO SCH (10:07)
[2023-03-17] MEDS: NICOTINE 21 MG/24 HOURS TOPICAL PATCH TD SCH (10:07)
[2023-03-17] MEDS: amLODIPine BESYLATE 5 MG TABLET (FP) PO SCH (10:07)
[2023-03-17] MEDS: hydrOXYzine PAMOATE 25 MG CAPSULE (FP) PO PRN (17:13)
[2023-03-17] MEDS ORDERED: cloNIDine HCL 0.1 MG TABLET PO ONE (21:12)
[2023-03-17] MEDS: MELATONIN 5 MG TABLETS PO SCH (22:26)
[2023-03-17] MEDS: OLANZapine 10 MG TABLET PO SCH (22:26)
[2023-03-17] MEDS: THIAMINE HCL 100 MG TABLET (FP) PO SCH (22:26)
[2023-03-18] MEDS: chlordiazePOXIDE HCL 10 MG CAPSULE PO SCH ×2 (05:33→17:53)
[2023-03-18] MEDS: methaDONE 80 MG, methaDONE 20 MG PO SCH (05:33)
[2023-03-18] MEDS: NICOTINE 21 MG/24 HOURS TOPICAL PATCH TD SCH (10:36)
[2023-03-18] MEDS: amLODIPine BESYLATE 5 MG TABLET (FP) PO SCH (10:36)
[2023-03-18] MEDS: PRENATAL VITAMINS W/ FOLIC ACID TABLET (FP) PO SCH (10:37)
[2023-03-18] MEDS: METHOCARBAMOL 500 MG TABLET PO PRN (17:56)
[2023-03-18] MEDS: OLANZapine 10 MG TABLET PO SCH (22:18)
[2023-03-18] MEDS: MELATONIN 5 MG TABLETS PO SCH (22:18)
[2023-03-18] MEDS: THIAMINE HCL 100 MG TABLET (FP) PO SCH (22:18)
[2023-03-19] MEDS ORDERED: chlordiazePOXIDE HCL 10 MG CAPSULE PO ONE (05:00)
[2023-03-19] MEDS: methaDONE 80 MG, methaDONE 20 MG PO SCH (05:13)
[2023-03-19 06:11] VITALS: RESP 18
[2023-03-19 09:24] VITALS: BP 151/98; PULSE 90; TEMP 98.1
[2023-03-19] MEDS: PRENATAL VITAMINS W/ FOLIC ACID TABLET (FP) PO SCH (10:16)
[2023-03-19] MEDS: amLODIPine BESYLATE 5 MG TABLET (FP) PO SCH (10:16)
[2023-03-19] MEDS: NICOTINE 21 MG/24 HOURS TOPICAL PATCH TD SCH (10:16)
== END 2023-03-19 01:20 | disposition other institution (70) | DRG 773 ==
LOC: YASAS 10:34 → Y3N 11:41
PROVIDERS: ADMIT Allergy & Immunology; ATTEND Surgery
PROC: HZ2ZZZZ Detoxification Services for Substance Abuse Treatment (ICD-10-PCS; principal; 2023-03-14)
DX: F10.230 Alcohol dependence with withdrawal, uncomplicated (principal); F11.20 Opioid dependence, uncomplicated; F14.20 Cocaine dependence, uncomplicated; F13.20 Sedative, hypnotic or anxiolytic dependence, uncomplicated; F17.210 Nicotine dependence, cigarettes, uncomplicated; F31.9 Bipolar disorder, unspecified; F41.8 Other specified anxiety disorders; F43.10 Post-traumatic stress disorder, unspecified; I10 Essential (primary) hypertension; Z86.19 Personal history of other infectious and parasitic diseases; Z91.011 Allergy to milk products
CPT/HCPCS: 36415; 80053; 81025; 85027; 86780; 87811; C9803-CS; Q0162; U0003; U0005

== ENCOUNTER 2023-03-19 13:33 | Inpatient (IN) | payer OTHER ==
[2023-03-19] MEDS ORDERED: ACETAMINOPHEN 325 MG TABLET (FP) PO PRN (15:09)
[2023-03-19] MEDS ORDERED: COLLOIDAL OATMEAL 1 BAR EACH TP PRN (15:09)
[2023-03-19] MEDS ORDERED: MAGNESIUM HYDROX 2400MG/30ML ORAL SUSPENSION 30 ML CUP PO PRN (15:09)
[2023-03-19] MEDS ORDERED: IBUPROFEN 600 MG TABLET (FP) PO PRN (15:09)
[2023-03-19] MEDS ORDERED: NICOTINE 10 MG CARTRIDGE (INHALER) IH PRN (15:09)
[2023-03-19] MEDS ORDERED: NALOXONE HCL 0.4 MG/ML VIAL IVPUSH PRN (15:09)
[2023-03-19] MEDS ORDERED: guaiFENesin 600 MG TABLET.ER (FP) PO PRN (15:09)
[2023-03-19] MEDS ORDERED: LOPERAMIDE HCL 2 MG CAPSULE PO PRN (15:09)
[2023-03-19] MEDS ORDERED: BENZOCAINE/MENTHOL (CHLORASEPTIC ) LOZENGE MM PRN (15:09)
[2023-03-19] MEDS ORDERED: BENZONATATE 200 MG CAPSULE PO PRN (15:09)
[2023-03-19] MEDS ORDERED: MAG HYDROX/AL HYDROX/SIMETH 30 ML UNIT-DOSE CUP PO PRN (15:09)
[2023-03-19] MEDS ORDERED: POLYETHYLENE GLYCOL (HEALTHYLAX) 3350 17 GM PACKET PO PRN (15:09)
[2023-03-19] MEDS ORDERED: AMMONIUM LACTATE 12% LOTION 225 GM BOTTLE TP PRN (15:09)
[2023-03-19] MEDS ORDERED: NALOXONE HCL (KLOXXADO) 8 MG SPRAY NS PRN (15:09)
[2023-03-19] MEDS ORDERED: NALOXONE (NARCAN) HCL 4 MG/0.1 ML SPRAY NS PRN (15:12)
[2023-03-19] MEDS: PRENATAL VITAMINS W/ FOLIC ACID TABLET (FP) PO SCH (15:58)
[2023-03-19] MEDS: NICOTINE 14 MG/24 HOURS TOPICAL PATCH TD SCH (15:58)
[2023-03-19] MEDS: hydrOXYzine PAMOATE 25 MG CAPSULE (FP) PO PRN (17:51)
[2023-03-19] MEDS: METHOCARBAMOL 500 MG TABLET PO PRN (17:51)
[2023-03-19] MEDS: THIAMINE HCL 100 MG TABLET (FP) PO SCH (21:07)
[2023-03-19] MEDS: MELATONIN 5 MG TABLETS PO SCH (21:07)
[2023-03-19] MEDS: OLANZapine 10 MG TABLET PO SCH (21:55)
[2023-03-20] MEDS: methaDONE 80 MG, methaDONE 20 MG PO SCH (05:51)
[2023-03-20] MEDS: NICOTINE 14 MG/24 HOURS TOPICAL PATCH TD SCH (09:10)
[2023-03-20] MEDS: amLODIPine BESYLATE 5 MG TABLET (FP) PO SCH (09:11)
[2023-03-20] MEDS: PRENATAL VITAMINS W/ FOLIC ACID TABLET (FP) PO SCH (09:11)
[2023-03-20] MEDS ORDERED: methaDONE HCL 40 MG DISPERSABLE TABLET PO SCH (10:00)
[2023-03-20 13:22] LABS: HIV INTERPRETATION NEGATIVE (NEGATIVE)
[2023-03-20] MEDS: METHOCARBAMOL 500 MG TABLET PO PRN (21:02)
[2023-03-20] MEDS: OLANZapine 10 MG TABLET PO SCH (21:02)
[2023-03-20] MEDS: THIAMINE HCL 100 MG TABLET (FP) PO SCH (21:02)
[2023-03-20] MEDS: MELATONIN 5 MG TABLETS PO SCH (21:02)
[2023-03-21] MEDS: methaDONE 80 MG, methaDONE 20 MG PO SCH (06:29)
[2023-03-21] MEDS: PRENATAL VITAMINS W/ FOLIC ACID TABLET (FP) PO SCH (10:08)
[2023-03-21] MEDS: NICOTINE 14 MG/24 HOURS TOPICAL PATCH TD SCH (10:08)
[2023-03-21] MEDS: amLODIPine BESYLATE 5 MG TABLET (FP) PO SCH (10:09)
[2023-03-21] MEDS ORDERED: amLODIPine BESYLATE 5 MG TABLET (FP) PO SCH (10:39)
[2023-03-21] MEDS ORDERED: amLODIPine BESYLATE 2.5 MG TABLET (FP) PO ONE (10:45)
[2023-03-21 11:48] LABS: INR 0.96 (0.83-1.09); PROTHROMBIN TIME (PATIENT) 11.1 SEC (9.7-13.0)
[2023-03-21] MEDS: BISACODYL 5 MG TABLET.DR (FP) PO PRN (13:39)
[2023-03-21] MEDS: LACTULOSE 20 GM/30 ML UDC (FOR ORAL USE ONLY) PO SCH (21:33)
[2023-03-21] MEDS: THIAMINE HCL 100 MG TABLET (FP) PO SCH (21:33)
[2023-03-21] MEDS: SUVOREXANT 10 MG TABLET PO PRN (21:35)
[2023-03-21] MEDS: METHOCARBAMOL 500 MG TABLET PO PRN (21:36)
[2023-03-21] MEDS: OLANZapine 5 MG TABLET PO SCH (21:36)
[2023-03-22] MEDS: LACTULOSE 20 GM/30 ML UDC (FOR ORAL USE ONLY) PO SCH ×3 (06:43→21:20)
[2023-03-22] MEDS: methaDONE 80 MG, methaDONE 20 MG PO SCH (06:44)
[2023-03-22] MEDS: PRENATAL VITAMINS W/ FOLIC ACID TABLET (FP) PO SCH (09:31)
[2023-03-22] MEDS: METHOCARBAMOL 500 MG TABLET PO PRN ×2 (09:31→21:20)
[2023-03-22] MEDS: BISACODYL 5 MG TABLET.DR (FP) PO PRN (09:32)
[2023-03-22] MEDS: NICOTINE 14 MG/24 HOURS TOPICAL PATCH TD SCH (09:32)
[2023-03-22] MEDS ORDERED: amLODIPine BESYLATE 2.5 MG TABLET (FP) PO SCH (10:00)
[2023-03-22] MEDS ORDERED: amLODIPine BESYLATE 2.5 MG TABLET (FP) PO ONE (15:16)
[2023-03-22] MEDS ORDERED: cloNIDine HCL 0.1 MG TABLET PO PRN (15:16)
[2023-03-22] MEDS: hydrOXYzine PAMOATE 25 MG CAPSULE (FP) PO PRN ×2 (19:32→21:23)
[2023-03-22] MEDS: THIAMINE HCL 100 MG TABLET (FP) PO SCH (21:20)
[2023-03-22] MEDS: SUVOREXANT 10 MG TABLET PO PRN (21:20)
[2023-03-22] MEDS: OLANZapine 5 MG TABLET PO SCH (21:20)
[2023-03-23] MEDS: LACTULOSE 20 GM/30 ML UDC (FOR ORAL USE ONLY) PO SCH ×3 (06:27→21:04)
[2023-03-23] MEDS: methaDONE 80 MG, methaDONE 20 MG PO SCH (06:27)
[2023-03-23] MEDS: amLODIPine BESYLATE 10 MG TABLET (FP) PO SCH (10:14)
[2023-03-23] MEDS: NICOTINE 14 MG/24 HOURS TOPICAL PATCH TD SCH (10:15)
[2023-03-23] MEDS: PRENATAL VITAMINS W/ FOLIC ACID TABLET (FP) PO SCH (10:16)
[2023-03-23] MEDS: hydrOXYzine PAMOATE 25 MG CAPSULE (FP) PO PRN (14:10)
[2023-03-23] MEDS: METHOCARBAMOL 500 MG TABLET PO PRN (17:19)
[2023-03-23] MEDS: THIAMINE HCL 100 MG TABLET (FP) PO SCH (21:04)
[2023-03-23] MEDS: OLANZapine 10 MG TABLET PO SCH (21:04)
[2023-03-23] MEDS: SUVOREXANT 10 MG TABLET PO PRN (21:06)
[2023-03-24] MEDS: LACTULOSE 20 GM/30 ML UDC (FOR ORAL USE ONLY) PO SCH ×2 (06:42→14:58)
[2023-03-24] MEDS: methaDONE 80 MG, methaDONE 20 MG PO SCH (06:43)
[2023-03-24] MEDS: NICOTINE 21 MG/24 HOURS TOPICAL PATCH TD SCH (10:32)
[2023-03-24] MEDS: PRENATAL VITAMINS W/ FOLIC ACID TABLET (FP) PO SCH (10:33)
[2023-03-24] MEDS: amLODIPine BESYLATE 10 MG TABLET (FP) PO SCH (10:33)
[2023-03-24] MEDS: METHOCARBAMOL 500 MG TABLET PO PRN ×2 (15:57→21:12)
[2023-03-24] MEDS ORDERED: SODIUM PHOSPHATE/NA BIPHOS 133 ML ENEMA RC ONE (19:10)
[2023-03-24] MEDS: THIAMINE HCL 100 MG TABLET (FP) PO SCH (21:11)
[2023-03-24] MEDS: OLANZapine 10 MG TABLET PO SCH (21:11)
[2023-03-24] MEDS: DOCUSATE SODIUM 100 MG CAPSULE (FP) PO SCH (21:14)
[2023-03-25] MEDS: SUVOREXANT 10 MG TABLET PO PRN ×2 (00:45→21:12)
[2023-03-25] MEDS: methaDONE 80 MG, methaDONE 20 MG PO SCH (06:29)
[2023-03-25] MEDS: PRENATAL VITAMINS W/ FOLIC ACID TABLET (FP) PO SCH (10:21)
[2023-03-25] MEDS: NICOTINE 21 MG/24 HOURS TOPICAL PATCH TD SCH (10:21)
[2023-03-25] MEDS: amLODIPine BESYLATE 10 MG TABLET (FP) PO SCH (10:21)
[2023-03-25] MEDS: hydrOXYzine PAMOATE 25 MG CAPSULE (FP) PO PRN ×2 (10:23→18:06)
[2023-03-25] MEDS: DOCUSATE SODIUM 100 MG CAPSULE (FP) PO SCH (21:09)
[2023-03-25] MEDS: THIAMINE HCL 100 MG TABLET (FP) PO SCH (21:09)
[2023-03-25] MEDS: OLANZapine 10 MG TABLET PO SCH (21:09)
[2023-03-26] MEDS: methaDONE 80 MG, methaDONE 20 MG PO SCH (06:15)
[2023-03-26] MEDS: DOCUSATE SODIUM 100 MG CAPSULE (FP) PO SCH (09:20)
[2023-03-26] MEDS: amLODIPine BESYLATE 10 MG TABLET (FP) PO SCH (10:31)
[2023-03-26] MEDS: PRENATAL VITAMINS W/ FOLIC ACID TABLET (FP) PO SCH (10:31)
[2023-03-26] MEDS: NICOTINE 21 MG/24 HOURS TOPICAL PATCH TD SCH (10:31)
[2023-03-26] MEDS: hydrOXYzine PAMOATE 25 MG CAPSULE (FP) PO PRN ×2 (10:33→21:25)
[2023-03-26] MEDS: SUVOREXANT 10 MG TABLET PO PRN (21:23)
[2023-03-26] MEDS: THIAMINE HCL 100 MG TABLET (FP) PO SCH (21:24)
[2023-03-26] MEDS: OLANZapine 10 MG TABLET PO SCH (21:24)
[2023-03-27] MEDS: methaDONE 80 MG, methaDONE 20 MG PO SCH (05:43)
[2023-03-27] MEDS: hydrOXYzine PAMOATE 25 MG CAPSULE (FP) PO PRN ×2 (07:30→21:36)
[2023-03-27] MEDS: PRENATAL VITAMINS W/ FOLIC ACID TABLET (FP) PO SCH (09:33)
[2023-03-27] MEDS: NICOTINE 21 MG/24 HOURS TOPICAL PATCH TD SCH (09:34)
[2023-03-27] MEDS: amLODIPine BESYLATE 10 MG TABLET (FP) PO SCH (09:35)
[2023-03-27] MEDS: DOCUSATE SODIUM 100 MG CAPSULE (FP) PO SCH (21:34)
[2023-03-27] MEDS: OLANZapine 10 MG TABLET PO SCH (21:34)
[2023-03-27] MEDS: THIAMINE HCL 100 MG TABLET (FP) PO SCH (21:34)
[2023-03-27] MEDS: SUVOREXANT 10 MG TABLET PO PRN (21:35)
[2023-03-28] MEDS ORDERED: methaDONE HCL 10 MG TABLET PO SCH (06:00)
[2023-03-28] MEDS: methaDONE 80 MG, methaDONE 20 MG PO SCH (06:34)
[2023-03-28] MEDS: amLODIPine BESYLATE 10 MG TABLET (FP) PO SCH (10:11)
[2023-03-28] MEDS: NICOTINE 21 MG/24 HOURS TOPICAL PATCH TD SCH (10:12)
[2023-03-28] MEDS: hydrOXYzine PAMOATE 25 MG CAPSULE (FP) PO PRN ×2 (10:12→19:09)
[2023-03-28] MEDS: PRENATAL VITAMINS W/ FOLIC ACID TABLET (FP) PO SCH (10:14)
[2023-03-28] MEDS: SUVOREXANT 10 MG TABLET PO PRN (21:43)
[2023-03-28] MEDS: OLANZapine 10 MG TABLET PO SCH (21:44)
[2023-03-28] MEDS: DOCUSATE SODIUM 100 MG CAPSULE (FP) PO SCH (21:44)
[2023-03-28] MEDS: THIAMINE HCL 100 MG TABLET (FP) PO SCH (21:44)
[2023-03-29] MEDS: methaDONE 80 MG, methaDONE 20 MG PO SCH (06:33)
[2023-03-29] MEDS: PRENATAL VITAMINS W/ FOLIC ACID TABLET (FP) PO SCH (10:16)
[2023-03-29] MEDS: amLODIPine BESYLATE 10 MG TABLET (FP) PO SCH (10:16)
[2023-03-29] MEDS: NICOTINE 21 MG/24 HOURS TOPICAL PATCH TD SCH (10:17)
[2023-03-29] MEDS: hydrOXYzine PAMOATE 25 MG CAPSULE (FP) PO PRN ×2 (10:18→19:44)
[2023-03-29] MEDS: IBUPROFEN 400 MG TABLET (FP) PO PRN (14:57)
[2023-03-29] MEDS: SUVOREXANT 10 MG TABLET PO PRN (21:10)
[2023-03-29] MEDS: OLANZapine 10 MG TABLET PO SCH (21:11)
[2023-03-29] MEDS: THIAMINE HCL 100 MG TABLET (FP) PO SCH (21:11)
[2023-03-29] MEDS: DOCUSATE SODIUM 100 MG CAPSULE (FP) PO SCH (21:11)
[2023-03-30] MEDS: methaDONE 80 MG, methaDONE 20 MG PO SCH (06:42)
[2023-03-30] MEDS: PRENATAL VITAMINS W/ FOLIC ACID TABLET (FP) PO SCH (10:23)
[2023-03-30] MEDS: HYDROCHLOROTHIAZIDE 12.5 MG CAPSULE (FP) PO SCH (10:23)
[2023-03-30] MEDS: NICOTINE 21 MG/24 HOURS TOPICAL PATCH TD SCH (10:23)
[2023-03-30] MEDS: amLODIPine BESYLATE 10 MG TABLET (FP) PO SCH (10:23)
[2023-03-30] MEDS: hydrOXYzine PAMOATE 25 MG CAPSULE (FP) PO PRN (10:24)
[2023-03-30] MEDS: THIAMINE HCL 100 MG TABLET (FP) PO SCH (21:27)
[2023-03-30] MEDS: DOCUSATE SODIUM 100 MG CAPSULE (FP) PO SCH (21:27)
[2023-03-30] MEDS: OLANZapine 10 MG TABLET PO SCH (21:27)
[2023-03-30] MEDS: SUVOREXANT 10 MG TABLET PO PRN (21:28)
[2023-03-31] MEDS: methaDONE 80 MG, methaDONE 20 MG PO SCH (06:26)
[2023-03-31] MEDS: DOCUSATE SODIUM 100 MG CAPSULE (FP) PO SCH (09:05)
[2023-03-31] MEDS: HYDROCHLOROTHIAZIDE 12.5 MG CAPSULE (FP) PO SCH (09:32)
[2023-03-31] MEDS: PRENATAL VITAMINS W/ FOLIC ACID TABLET (FP) PO SCH (09:32)
[2023-03-31] MEDS: amLODIPine BESYLATE 10 MG TABLET (FP) PO SCH (09:32)
[2023-03-31] MEDS: NICOTINE 21 MG/24 HOURS TOPICAL PATCH TD SCH (09:32)
[2023-03-31] MEDS: hydrOXYzine PAMOATE 25 MG CAPSULE (FP) PO PRN ×2 (09:35→17:26)
[2023-03-31] MEDS: IBUPROFEN 400 MG TABLET (FP) PO PRN (17:26)
[2023-03-31] MEDS: OLANZapine 10 MG TABLET PO SCH (21:03)
[2023-03-31] MEDS: SUVOREXANT 10 MG TABLET PO PRN (21:06)
[2023-03-31] MEDS: THIAMINE HCL 100 MG TABLET (FP) PO SCH (22:20)
[2023-04-01] MEDS: methaDONE 80 MG, methaDONE 20 MG PO SCH (06:13)
[2023-04-01] MEDS: HYDROCHLOROTHIAZIDE 12.5 MG CAPSULE (FP) PO SCH (10:10)
[2023-04-01] MEDS: PRENATAL VITAMINS W/ FOLIC ACID TABLET (FP) PO SCH (10:10)
[2023-04-01] MEDS: amLODIPine BESYLATE 10 MG TABLET (FP) PO SCH (10:10)
[2023-04-01] MEDS: NICOTINE 21 MG/24 HOURS TOPICAL PATCH TD SCH (10:11)
[2023-04-01] MEDS: SUVOREXANT 10 MG TABLET PO PRN (21:50)
[2023-04-01] MEDS: DOCUSATE SODIUM 100 MG CAPSULE (FP) PO SCH (21:51)
[2023-04-01] MEDS: OLANZapine 10 MG TABLET PO SCH (21:51)
[2023-04-01] MEDS: THIAMINE HCL 100 MG TABLET (FP) PO SCH (21:51)
[2023-04-02] MEDS: methaDONE 80 MG, methaDONE 20 MG PO SCH (06:01)
[2023-04-02] MEDS: hydrOXYzine PAMOATE 25 MG CAPSULE (FP) PO PRN ×2 (08:52→17:30)
[2023-04-02] MEDS: NICOTINE 21 MG/24 HOURS TOPICAL PATCH TD SCH (09:43)
[2023-04-02] MEDS: PRENATAL VITAMINS W/ FOLIC ACID TABLET (FP) PO SCH (09:43)
[2023-04-02] MEDS: amLODIPine BESYLATE 10 MG TABLET (FP) PO SCH (09:43)
[2023-04-02] MEDS: HYDROCHLOROTHIAZIDE 12.5 MG CAPSULE (FP) PO SCH (09:43)
[2023-04-02] MEDS: OLANZapine 10 MG TABLET PO SCH (22:02)
[2023-04-02] MEDS: THIAMINE HCL 100 MG TABLET (FP) PO SCH (22:02)
[2023-04-02] MEDS: DOCUSATE SODIUM 100 MG CAPSULE (FP) PO SCH (22:02)
[2023-04-02] MEDS: SUVOREXANT 10 MG TABLET PO PRN (22:11)
[2023-04-03] MEDS: methaDONE 80 MG, methaDONE 20 MG PO SCH (06:20)
[2023-04-03 06:57] VITALS: RESP 18
[2023-04-03] MEDS: HYDROCHLOROTHIAZIDE 12.5 MG CAPSULE (FP) PO SCH (10:21)
[2023-04-03] MEDS: amLODIPine BESYLATE 10 MG TABLET (FP) PO SCH (10:21)
[2023-04-03] MEDS: PRENATAL VITAMINS W/ FOLIC ACID TABLET (FP) PO SCH (10:22)
[2023-04-03] MEDS: NICOTINE 21 MG/24 HOURS TOPICAL PATCH TD SCH (10:22)
[2023-04-03] MEDS: OLANZapine 10 MG TABLET PO SCH (21:52)
[2023-04-03] MEDS: THIAMINE HCL 100 MG TABLET (FP) PO SCH (21:52)
[2023-04-03] MEDS: hydrOXYzine PAMOATE 25 MG CAPSULE (FP) PO PRN (21:52)
[2023-04-03] MEDS: DOCUSATE SODIUM 100 MG CAPSULE (FP) PO SCH (21:52)
[2023-04-03] MEDS: SUVOREXANT 10 MG TABLET PO PRN (21:52)
[2023-04-04] MEDS: methaDONE 80 MG, methaDONE 20 MG PO SCH (06:59)
[2023-04-04] MEDS: amLODIPine BESYLATE 10 MG TABLET (FP) PO SCH (09:40)
[2023-04-04] MEDS: HYDROCHLOROTHIAZIDE 12.5 MG CAPSULE (FP) PO SCH (09:40)
[2023-04-04] MEDS: NICOTINE 21 MG/24 HOURS TOPICAL PATCH TD SCH (09:40)
[2023-04-04] MEDS: PRENATAL VITAMINS W/ FOLIC ACID TABLET (FP) PO SCH (09:41)
[2023-04-04] MEDS: hydrOXYzine PAMOATE 25 MG CAPSULE (FP) PO PRN ×2 (09:42→21:48)
[2023-04-04] MEDS: SUVOREXANT 10 MG TABLET PO PRN (21:47)
[2023-04-04] MEDS: OLANZapine 10 MG TABLET PO SCH (21:48)
[2023-04-04] MEDS: DOCUSATE SODIUM 100 MG CAPSULE (FP) PO SCH (21:48)
[2023-04-04] MEDS: THIAMINE HCL 100 MG TABLET (FP) PO SCH (21:48)
[2023-04-05] MEDS: methaDONE 80 MG, methaDONE 20 MG PO SCH (06:58)
[2023-04-05 08:03] VITALS: BP 145/99; PULSE 86; TEMP 97.6
[2023-04-05] MEDS: HYDROCHLOROTHIAZIDE 12.5 MG CAPSULE (FP) PO SCH (09:42)
[2023-04-05] MEDS: amLODIPine BESYLATE 10 MG TABLET (FP) PO SCH (09:42)
[2023-04-05] MEDS: PRENATAL VITAMINS W/ FOLIC ACID TABLET (FP) PO SCH (09:42)
[2023-04-05] MEDS: NICOTINE 21 MG/24 HOURS TOPICAL PATCH TD SCH (09:43)
== END 2023-04-05 10:15 | disposition home or self-care (01) | DRG 772 ==
LOC: YASAS 13:33 → Y5N 13:34
PROVIDERS: ADMIT Allergy & Immunology; ATTEND Psychiatry & Neurology Pain Medicine
PROC: HZ42ZZZ Group Counseling for Substance Abuse Treatment, Cognitive-Behavioral (ICD-10-PCS; principal; 2023-03-19)
DX: F10.20 Alcohol dependence, uncomplicated (principal); F11.20 Opioid dependence, uncomplicated; F14.20 Cocaine dependence, uncomplicated; F13.20 Sedative, hypnotic or anxiolytic dependence, uncomplicated; F17.210 Nicotine dependence, cigarettes, uncomplicated; B18.2 Chronic viral hepatitis C; I10 Essential (primary) hypertension; K59.00 Constipation, unspecified; L85.3 Xerosis cutis; R79.89 Other specified abnormal findings of blood chemistry; R60.0 Localized edema
CPT/HCPCS: 36415; 82140; 84443; 85610; 86803; 87389; 87522

== ENCOUNTER 2023-04-25 21:34 | Inpatient (IN) | payer OTHER ==
[2023-04-25 22:11] VITALS: BMI 31.6
[2023-04-26] MEDS ORDERED: MAGNESIUM HYDROX 2400MG/30ML ORAL SUSPENSION 30 ML CUP PO PRN (00:12)
[2023-04-26] MEDS ORDERED: POLYETHYLENE GLYCOL (HEALTHYLAX) 3350 17 GM PACKET PO PRN (00:12)
[2023-04-26] MEDS ORDERED: guaiFENesin 600 MG TABLET.ER (FP) PO PRN (00:12)
[2023-04-26] MEDS ORDERED: LOPERAMIDE HCL 2 MG CAPSULE PO PRN (00:12)
[2023-04-26] MEDS ORDERED: BENZONATATE 200 MG CAPSULE PO PRN (00:12)
[2023-04-26] MEDS ORDERED: chlordiazePOXIDE HCL 25 MG CAPSULE PO PRN (00:12)
[2023-04-26] MEDS ORDERED: ONDANSETRON *ODT* 4 MG TABLET SL PRN (00:12)
[2023-04-26] MEDS ORDERED: BISMUTH SUBSALICYLATE 524 MG/30 ML PO PRN (00:12)
[2023-04-26] MEDS ORDERED: IBUPROFEN 400 MG TABLET (FP) PO PRN (00:12)
[2023-04-26] MEDS ORDERED: IBUPROFEN 600 MG TABLET (FP) PO PRN (00:12)
[2023-04-26] MEDS ORDERED: BENZOCAINE/MENTHOL (CHLORASEPTIC ) LOZENGE MM PRN (00:12)
[2023-04-26] MEDS ORDERED: DICYCLOMINE HCL 10 MG CAPSULE PO PRN (00:12)
[2023-04-26] MEDS ORDERED: ACETAMINOPHEN 325 MG TABLET (FP) PO PRN (00:12)
[2023-04-26] MEDS ORDERED: NICOTINE 10 MG CARTRIDGE (INHALER) IH PRN (00:12)
[2023-04-26] MEDS ORDERED: MAG HYDROX/AL HYDROX/SIMETH 30 ML UNIT-DOSE CUP PO PRN (00:12)
[2023-04-26] MEDS ORDERED: NALOXONE HCL (KLOXXADO) 8 MG SPRAY NS PRN (00:12)
[2023-04-26] MEDS ORDERED: NALOXONE HCL 0.4 MG/ML VIAL IM PRN (00:12)
[2023-04-26] MEDS: chlordiazePOXIDE HCL 25 MG CAPSULE PO SCH ×4 (05:26→21:59)
[2023-04-26] MEDS ORDERED: methaDONE HCL 10 MG TABLET PO ONE (08:47)
[2023-04-26] MEDS: NICOTINE 14 MG/24 HOURS TOPICAL PATCH TD SCH (10:11)
[2023-04-26] MEDS: METHOCARBAMOL 500 MG TABLET PO PRN (10:11)
[2023-04-26] MEDS: PRENATAL VITAMINS W/ FOLIC ACID TABLET (FP) PO SCH (10:15)
[2023-04-26] MEDS: amLODIPine BESYLATE 10 MG TABLET (FP) PO SCH (13:03)
[2023-04-26] MEDS: HYDROCHLOROTHIAZIDE 12.5 MG CAPSULE (FP) PO SCH (13:03)
[2023-04-26] MEDS: OLANZapine 10 MG TABLET PO SCH (21:59)
[2023-04-26] MEDS: THIAMINE HCL 100 MG TABLET (FP) PO SCH (21:59)
[2023-04-26] MEDS: MELATONIN 5 MG TABLETS PO SCH (21:59)
[2023-04-27] MEDS: chlordiazePOXIDE HCL 25 MG CAPSULE PO SCH ×4 (05:38→22:00)
[2023-04-27] MEDS ORDERED: methaDONE HCL 10 MG TABLET PO SCH (06:00)
[2023-04-27] MEDS: NICOTINE 14 MG/24 HOURS TOPICAL PATCH TD SCH (10:02)
[2023-04-27] MEDS: METHOCARBAMOL 500 MG TABLET PO PRN ×2 (10:02→21:54)
[2023-04-27] MEDS: amLODIPine BESYLATE 10 MG TABLET (FP) PO SCH (10:02)
[2023-04-27] MEDS: HYDROCHLOROTHIAZIDE 12.5 MG CAPSULE (FP) PO SCH (10:02)
[2023-04-27] MEDS: PRENATAL VITAMINS W/ FOLIC ACID TABLET (FP) PO SCH (10:05)
[2023-04-27 11:47] LABS: HEMATOCRIT 38.4 % (32.4-45.2); HEMOGLOBIN 12.3 GM/dL (10.7-15.3); MCH 26.3 pg (25.7-33.7); MEAN CELL VOLUME 82.3 fl (80-96); MEAN PLT VOLUME 8.6 fl (7.5-11.1); PLATELET COUNT 207 10^3/uL (134-434); POTASSIUM 3.9 mmol/L (3.5-5.1); RBC 4.66 M/mm3 (3.60-5.2); RDW 14.2 % (11.6-15.6); WHITE BLOOD COUNT 4.2 K/mm3 (4.0-10.0)
[2023-04-27 11:53] LABS: ALBUMIN 3.5 g/dl (3.4-5.0); BLOOD UREA NITROGEN 13.6 mg/dL (7-18); CALCIUM 9.6 mg/dL (8.5-10.1)
[2023-04-27 11:56] LABS: CREATININE 0.8 mg/dL (0.55-1.3)
[2023-04-27 11:58] LABS: BILIRUBIN,TOTAL 0.3 mg/dL (0.2-1)
[2023-04-27] MEDS: OLANZapine 10 MG TABLET PO SCH (21:51)
[2023-04-27] MEDS: MELATONIN 5 MG TABLETS PO SCH (21:51)
[2023-04-27] MEDS: THIAMINE HCL 100 MG TABLET (FP) PO SCH (21:51)
[2023-04-28] MEDS ORDERED: chlordiazePOXIDE HCL 10 MG CAPSULE PO PRN
[2023-04-28] MEDS: chlordiazePOXIDE HCL 10 MG CAPSULE PO SCH ×4 (05:58→22:14)
[2023-04-28] MEDS: NICOTINE 21 MG/24 HOURS TOPICAL PATCH TD SCH (10:33)
[2023-04-28] MEDS: PRENATAL VITAMINS W/ FOLIC ACID TABLET (FP) PO SCH (10:33)
[2023-04-28] MEDS: amLODIPine BESYLATE 10 MG TABLET (FP) PO SCH (10:34)
[2023-04-28] MEDS: METHOCARBAMOL 500 MG TABLET PO PRN (10:34)
[2023-04-28] MEDS: HYDROCHLOROTHIAZIDE 12.5 MG CAPSULE (FP) PO SCH (10:34)
[2023-04-28] MEDS ORDERED: BISACODYL 5 MG TABLET.DR (FP) PO PRN (10:53)
[2023-04-28] MEDS: OLANZapine 10 MG TABLET PO SCH (22:13)
[2023-04-28] MEDS: THIAMINE HCL 100 MG TABLET (FP) PO SCH (22:13)
[2023-04-28] MEDS: MELATONIN 5 MG TABLETS PO SCH (22:13)
[2023-04-29] MEDS: chlordiazePOXIDE HCL 10 MG CAPSULE PO SCH ×2 (05:36→17:52)
[2023-04-29] MEDS: PRENATAL VITAMINS W/ FOLIC ACID TABLET (FP) PO SCH (10:31)
[2023-04-29] MEDS: amLODIPine BESYLATE 10 MG TABLET (FP) PO SCH (10:31)
[2023-04-29] MEDS: HYDROCHLOROTHIAZIDE 12.5 MG CAPSULE (FP) PO SCH (10:31)
[2023-04-29] MEDS: NICOTINE 21 MG/24 HOURS TOPICAL PATCH TD SCH (10:32)
[2023-04-29] MEDS: THIAMINE HCL 100 MG TABLET (FP) PO SCH (22:46)
[2023-04-29] MEDS: MELATONIN 5 MG TABLETS PO SCH (22:46)
[2023-04-29] MEDS: OLANZapine 10 MG TABLET PO SCH (22:47)
[2023-04-30] MEDS ORDERED: chlordiazePOXIDE HCL 10 MG CAPSULE PO ONE (05:00)
[2023-04-30] MEDS: METHOCARBAMOL 500 MG TABLET PO PRN (06:02)
[2023-04-30 06:29] VITALS: RESP 18
[2023-04-30] MEDS: HYDROCHLOROTHIAZIDE 12.5 MG CAPSULE (FP) PO SCH (10:16)
[2023-04-30] MEDS: amLODIPine BESYLATE 10 MG TABLET (FP) PO SCH (10:16)
[2023-04-30] MEDS: NICOTINE 21 MG/24 HOURS TOPICAL PATCH TD SCH (10:17)
[2023-04-30] MEDS: PRENATAL VITAMINS W/ FOLIC ACID TABLET (FP) PO SCH (10:17)
[2023-04-30 11:29] VITALS: BP 120/84; PULSE 94; TEMP 98.2
== END 2023-04-30 10:37 | disposition home or self-care (01) | DRG 773 ==
LOC: YASAS 21:34 → Y6N 04-26 03:29
PROVIDERS: ADMIT Allergy & Immunology; ATTEND Surgery
PROC: HZ2ZZZZ Detoxification Services for Substance Abuse Treatment (ICD-10-PCS; principal; 2023-04-26)
DX: F10.230 Alcohol dependence with withdrawal, uncomplicated (principal); F11.20 Opioid dependence, uncomplicated; F14.20 Cocaine dependence, uncomplicated; F12.20 Cannabis dependence, uncomplicated; F17.210 Nicotine dependence, cigarettes, uncomplicated; F19.282 Other psychoactive substance dependence with psychoactive substance-induced sleep disorder; F19.24 Other psychoactive substance dependence with psychoactive substance-induced mood disorder; F25.9 Schizoaffective disorder, unspecified; F31.9 Bipolar disorder, unspecified; F43.10 Post-traumatic stress disorder, unspecified; I10 Essential (primary) hypertension; Z62.810 Personal history of physical and sexual abuse in childhood; Z86.19 Personal history of other infectious and parasitic diseases; Z91.011 Allergy to milk products
CPT/HCPCS: 36415; 80053; 81025; 85027; 86780; 87635; 87811